=== PATIENT | female | born 1985 | race African-American/Black ===

== ENCOUNTER 2016-06-03 18:25 | Emergency (ER) | payer BC ==
[~2016-06-03] VITALS: Ht 162.6 cm; Wt 52.0 kg
[~2016-06-03 18:25] MED LIST: IBUP800T25 PO; LOPE2CAP PO; ONDA4TAB14 PO; PEN500 PO
[2016-06-03 18:31] VITALS: Ht 162.6 cm; Wt 52.0 kg
[2016-06-03] MEDS ORDERED: SOD CHLORIDE 0.9% 1,000 ML IV STA (19:20)
[2016-06-03] MEDS ORDERED: METOCLOPRAMIDE 10 MG INJ IV ONE (19:30)
[2016-06-03 19:44] LABS: ADD UMIC YES; URINE BILIRUBIN (Dip) 1+ (NEGATIVE); URINE BLOOD (Dip) NEGATIVE (NEGATIVE); URINE COLOR YELLOW (YELLOW); URINE GLUCOSE (Dip) NEGATIVE (NEGATIVE); URINE KETONES (Dip) 3+ (NEGATIVE); URINE LEUKOCYTE ESTERASE (Dip) NEGATIVE (NEGATIVE); URINE NITRITE (Dip) NEGATIVE (NEGATIVE); URINE TOTAL PROTEIN (Dip) 1+ (NEGATIVE); URINE UROBILINOGEN (Dip) 1.0 E.U./dL (0.1-1.0)
[2016-06-03 19:54] LABS: ICTOTEST NEGATIVE (NEGATIVE)
[2016-06-03 19:55] LABS: URINE RBCS NONE SEEN /HPF (0)
[2016-06-03 19:55] LABS: ADD SCAN DIFF NO
[2016-06-03 19:56] LABS: MUCUS,URINE MODERATE
[2016-06-03 19:57] LABS: BASOPHILS % 0.1 % (0.0-2.0); EOSINOPHILS % 0.1 % (0.0-7.0); HEMATOCRIT 38.1 % (37.0-47.0); HEMOGLOBIN 12.8 g/dl (12.0-16.0); MEAN CORPUSCULAR HEMOGLOBIN 24.3 pg (29.0-33.0); MEAN CORPUSCULAR HGB CONC 33.6 g/dl (32.0-37.0); MEAN CORPUSCULAR VOLUME 72.4 fl (82.0-101.0); MONOCYTE # 0.8 10^3/ul (0.3-0.9); NEUTROPHILS % 86.4 % (39.0-77.0); PLATELET COUNT 316 10^3/UL (140-415); RED BLOOD COUNT 5.26 10^6/ul (4.20-5.40); RED CELL DISTRIBUTION WIDTH 13.2 % (11.5-14.5); WHITE BLOOD COUNT 13.9 10^3/ul (4.8-10.8)
[2016-06-03 20:21] LABS: ALBUMIN/GLOBULIN RATIO 1.19; BILIRUBIN,INDIRECT 1.7 mg/dl (0-1.1); BILIRUBIN,TOTAL 1.7 mg/dl (0.2-1.3); CALCIUM 10.2 mg/dl (8.4-10.2); CREATININE 0.54 mg/dl (0.44-1.00); POTASSIUM 3.1 mmol/L (3.5-5.1); TOTAL PROTEIN 9.2 g/dl (6.1-8.1)
--- NOTE | 2016-06-03 20:33 | RADRPT ---
PROCEDURE: US Abdomen. CLINICAL INDICATION: Right upper quadrant pain. TECHNIQUE: Multiple real-time images were acquired of the patient's abdomen and retroperitoneum ut ilizing a high resolution transducer. COMPARISON: None FINDINGS: The liver is identified in the right upper quadrant measuring 13.24 cm in size. The of hepatic and portal veins are patent. The gallbladder wall measures 2.1 mm. There is no evidence of cholelithia sis. The common bile duct measures 2.1 mm. The portal vein is patent. The pancreas is partially visualized. Head and body or normal. The distal body and tail of the montiel creas are not optimally visualized due to bowel gas. The right kidney measured 9 cm in length without evidence of mass or hydronephrosis. IMPRESSION: 1. No evidence of cholelithiasis. Normal common bile duct. 2. Normal right kidney without evidence of hydronephrosis. RPTAT:AAJJ Physician Prateek Date Time Electronically viewed and signed by Physician Prateek on 06/03/2016 20:33 JOSELYN/
--- NOTE | 2016-06-03 20:47 | RADRPT ---
PROCEDURE: US OB. CLINICAL INDICATION: Pelvic pain. TECHNIQUE: Transabdominal and transvaginal views of the pelvis are available for review. COMPARISON: No prior studies are available for comparison. FINDINGS: The mean gestational sac diameter is 3 cm. [place]-rump length:1.6 cm heart rate:171 beats per minute Ultrasound estimated gestational age: 8 weeks 1 day Estimated date of delivery: 01/12/2017. A small subchorionic hemorrhage is seen measuring 1 x 1 x 0.4 cm in size. The right ovary is not vi sualized. Left ovary measures 5.6 x 4.5 x 4.4 cm in size. A left ovarian cyst is seen measuring 4 cm. The left ovary is otherwise normal and color flow. Otherwise, no ovarian or adnexal mass lesion is seen. There is no free fluid. IMPRESSION: Single live intrauterine with an estimated gestational age of 8 weeks 1 day. Small subchorionic hemorrhage. Correlation to the patient's clinical status in a short interval fol low-up is suggested. RPTAT: HPNM Physician Julissa Date Time Electronically viewed and signed by Physician Julissa on 06/03/2016 20:47 /
[2016-06-03] MEDS ORDERED: ONDANSETRON 4 MG INJ IV STA (21:08)
[2016-06-03] MEDS ORDERED: ONDA4TAB14 PO (21:48)
[2016-06-03] MEDS ORDERED: ACET325T33 PO (21:48)
--- NOTE | 2016-06-03 21:56 | ERD ---
ER Documentation Chief Complaint Date/Time DATE: 06/03/16 TIME: 21:51 Chief Complaint 8 wks , pelvic pain with vomiting x 5 days HPI 31-year-old female patient with no significant past medical history presents to the ED complaining of slight pelvic pain, a few episodes of nonbilious nonbloody vomiting. Reports that she is . States that she is a . States that her last menses was April 07, 2016. Reports that she some slight lower bilateral pelvic pain. Reports that her last bowel movement was yesterday. States that she was diagnosed with gallstones at a previous hospital 2 weeks ago. Denies any vaginal bleeding, vaginal discharge, diarrhea , chest pain, shortness of breath, fever, chills, cough. ROS All systems reviewed and are negative except as per history of present illness. Medications Home Meds Active Scripts Acetaminophen* (Tylenol*) 325 Mg Tablet, 1 TAB PO Q6 Y for PAIN AND OR ELEVATED TEMP, #20 TAB Prov:FABIOLA RANGEL PA-C 06/03/16 Ondansetron (Ondansetron Odt) 4 Mg Tab.rapdis, 4 MG PO Q6H Y for NAUSEA AND/OR VOMITING, #10 TAB Prov:FABIOLA RANGEL PA-C 06/03/16 Loperamide Hcl* (Imodium*) 2 Mg Capsule, 2 MG PO .AFTER EA LOOSE BM Y for DIARRHEA, #10 TAB Prov:CONSUELO HILL MD 11/06/15 Ondansetron (Ondansetron Odt) 4 Mg Tab.rapdis, 4 MG PO Q6H Y for NAUSEA AND/OR VOMITING, #10 TAB Prov:CONSUELO HILL MD 11/06/15 Penicillin V Potassium* (Penicillin V K*) 500 Mg Tab, 500 MG PO BID for 10 Days , TAB Prov:JOSE AGGARWAL 06/05/15 Ibuprofen* (Motrin*) 800 Mg Tab, 800 MG PO Q6H Y for PAIN AND OR ELEVATED TEMP, #30 TAB Prov:MG SIMONS NP 06/02/15 Allergies Allergies: Coded Allergies: No Known Allergy (Unverified , 11/06/15) PMhx/Soc Medical and Surgical Hx: pt denies Medical Hx History of Surgery: Yes () Anesthesia Reaction: No Hx Alcohol Use: No Hx Substance Use: No Hx Tobacco Use: No Smoking Status: Never smoker Physical Exam Vitals Vital Signs Date Time Temp Pulse Resp B/P Pulse Ox O2 Delivery O2 Flow Rate FiO2 06/03/16 22:15 98.2 79 20 110/82 99 Room Air 06/03/16 18:31 97.6 74 20 107/76 99 Physical Exam Const: Oga-hqc-qxfbsgdub, well-nourished. In no acute distress. Head: Atraumatic, normocephalic Eyes: Normal Conjunctiva without injection. No purulent discharge. ENT: Normal external ear, nose. Moist oropharynx without tonsillar exudates. Non -erythematous pharynx. Uvula midline. No drooling. No trismus. Neck: No cervical midline tenderness. Full range of motion. No meningismus. No cervical lymphadenopathy. No JVD. Resp: Clear to auscultation bilaterally. No wheezing, rhonchi, rales, or crackles. No accessory muscle use. No retractions. Cardio: Regular rate and rhythm. No murmurs, rubs or gallops. Abd: Soft, slight bilateral pelvic tenderness, non distended. Normal bowel sounds. No palpable masses. No rebound tenderness. No guarding. Negative McBurney's point. Negative psoas sign. Negative obturator sign. Skin: No petechiae or rashes Back: No midline tenderness. No CVA tenderness. Ext: No cyanosis, or edema. Neur: Awake and alert. Normal gait. Normal coordination. Psych: Normal Mood and Affect Result Diagram: 06/03/16194406/03/161944 Results 24 hrs Laboratory Tests Test 06/03/16 19:30 06/03/16 19:45 Urine Color YELLOW Urine Clarity CLEAR Urine pH 6.0 Urine Specific [place] >=1.030 Urine Ketones 3+ Urine Nitrite NEGATIVE Urine Bilirubin 1+ Urine Ictotest NEGATIVE Urine Urobilinogen 1.0 E.U./dL Urine Leukocyte Esterase NEGATIVE Urine Microscopic RBC NONE SEEN/HPF Urine Microscopic WBC 0-2/HPF Urine Mucus MODERATE Urine Hemoglobin NEGATIVE Urine Glucose NEGATIVE% Urine Total Protein 1+ White Blood Count 13.910^3/ul Red Blood Count 5.2610^6/ul Hemoglobin 12.8g/dl Hematocrit 38.1% Mean Corpuscular Volume 72.4fl Mean Corpuscular Hemoglobin 24.3pg Mean Corpuscular Hemoglobin Concent 33.6g/dl Red Cell Distribution Width 13.2% Platelet Count 38885^3/UL Mean Platelet Volume 12.0fl Neutrophils % 86.4% Lymphocytes % 7.0% Monocytes % 6.0% Eosinophils % 0.1% Basophils % 0.1% Nucleated Red Blood Cells % 0.0/100WBC Neutrophils # 12.010^3/ul Lymphocytes # 1.010^3/ul Monocytes # 0.810^3/ul Eosinophils # 0.010^3/ul Basophils # 0.010^3/ul Nucleated Red Blood Cells # 0.010^3/ul Sodium Level 136mmol/L Potassium Level 3.1mmol/L Chloride Level 100mmol/L Carbon Dioxide Level 20mmol/L Anion Gap 19 Blood Urea Nitrogen 15mg/dl Creatinine 0.54mg/dl Glucose Level 103mg/dl Calcium Level 10.2mg/dl Total Bilirubin 1.7mg/dl Direct Bilirubin 0.00mg/dl Indirect Bilirubin 1.7mg/dl Aspartate Amino Transf (AST/SGOT) 22IU/L Alanine Aminotransferase (ALT/SGPT) 20IU/L Alkaline Phosphatase 71IU/L Total Protein 9.2g/dl Albumin 5.0g/dl Globulin 4.20g/dl Albumin/Globulin Ratio 1.19 Lipase 41U/L Beta HCG, Quantitative 738520.0mIU/ml Current Medications Medications (Trade) Dose Ordered Sig/Ramona Route PRN Reason Start Time Stop Time Status Last Admin Dose Admin Sodium Chloride (NS) 1,000 ml @ 1,000 mls/hr Q1H STAT IV 06/03/16 19:20 06/03/16 20:19 DC 06/03/16 19:48 Metoclopramide HCl (Reglan) 10 mg ONCE ONCE IV 06/03/16 19:30 06/03/16 19:31 DC 06/03/16 19:48 Ondansetron HCl (Zofran Inj) 4 mg ONCE STAT IV 06/03/16 21:08 06/03/16 21:10 DC 06/03/16 21:16 Procedures/MDM This is a 31-year-old female patient with no significant past medical history is a presents to the ED complaining of slight lower pelvic pain and daily nonbilious nonbloody vomiting that has occurred ever since the start of her . Patient is afebrile and nontoxic-appearing. Patient has normal vital signs. An ultrasound, beta-hCG, CBC, type and RH, UA was ordered to evaluate patient. CBC: Leukocytosis of 13.9. No e/o of systemic infection. No e/o anemia. CMP: No e/o severe acidosis, alkalosis, renal failure, diabetic ketoacidosis, liver disease Lipase within normal limits. Urine: No leukocyte esterase, no nitrites, no hematuria. Rh: O negative. Rhogam was ordered to treat patient at this time since patient has a subchorionic hemorrhage noted on her ultrasound. However patient denied wanting RhoGam at this time and wanted to follow-up with her REFUSE LABORER for RhoGam within the next 72 hours. beta Hc PROCEDURE: US Abdomen. CLINICAL INDICATION: Right upper quadrant pain. TECHNIQUE: Multiple real-time images were acquired of the patient's abdomen and retroperitoneum utilizing a high resolution transducer. COMPARISON: None FINDINGS: The liver is identified in the right upper quadrant measuring 13.24 cm in size. The of hepatic and portal veins are patent. The gallbladder wall measures 2.1 mm. There is no evidence of cholelithiasis. The common bile duct measures 2.1 mm. The portal vein is patent. The pancreas is partially visualized. Head and body or normal. The distal body and tail of the pancreas are not optimally visualized due to bowel gas. The right kidney measured 9 cm in length without evidence of mass or hydronephrosis. IMPRESSION: 1. No evidence of cholelithiasis. Normal common bile duct. 2. Normal right kidney without evidence of hydronephrosis. PROCEDURE: US OB. CLINICAL INDICATION: Pelvic pain. TECHNIQUE: Transabdominal and transvaginal views of the pelvis are available for review. COMPARISON: No prior studies are available for comparison. FINDINGS: The mean gestational sac diameter is 3 cm. [place]-rump length: 1.6 cm heart rate: 171 beats per minute Ultrasound estimated gestational age: 8 weeks 1 day Estimated date of delivery: 01/12/2017. A small subchorionic hemorrhage is seen measuring 1 x 1 x 0.4 cm in size. The right ovary is not visualized. Left ovary measures 5.6 x 4.5 x 4.4 cm in size. A left ovarian cyst is seen measuring 4 cm. The left ovary is otherwise normal and color flow. Otherwise, no ovarian or adnexal mass lesion is seen. There is no free fluid. IMPRESSION: Single live intrauterine with an estimated gestational age of 8 weeks 1 day. Small subchorionic hemorrhage. Correlation to the patient's clinical status in a short interval follow-up is suggested. Patient likely has hyperemesis secondary to her . Potassium noted to be 3.1, Bicarb 21. Patient was hydrated with 1 L normal saline. Patient has a single IUP estimated to be 8 weeks. Low suspicion for symptomatic anemia, ectopic , sepsis, PID, appendicitis, ovarian torsion, tubo-ovarian abscess, surgical abdomen, or other emergent conditions. This case was discussed with my supervising physician, Dr. Lozoya who agreed with the management and discharge plan. Discharge medications: Tylenol, Zofran Patient to follow up with REFUSE LABORER in 2 days for further evaluation and treatment. Patient is to return sooner to the ED for any worsening symptoms. Patient's questions were answered. Patient understood and agreed with discharge plan. Departure Diagnosis: Primary Impression: Hyperemesis arising during Condition: Stable Patient Instructions: Hyperemesis Gravidarum (Severe Morning Sickness), , Established, Normal Symptoms Referrals: [facility] YOU HAVE RECEIVED A MEDICAL SCREENING EXAM AND THE RESULTS INDICATE THAT YOU DO NOT HAVE A CONDITION THAT REQUIRES URGENT TREATMENT IN THE EMERGENCY DEPARTMENT. FURTHER EVALUATION AND TREATMENT OF YOUR CONDITION CAN WAIT UNTIL YOU ARE SEEN IN YOUR DOCTORS OFFICE WITHIN THE NEXT 1-2 DAYS. IT IS YOUR RESPONSIBILITY TO MAKE AN APPOINTMENT FOR FOLOW-UP CARE. IF YOU HAVE A PRIMARY DOCTOR --you should call your primary doctor and schedule an appointment IF YOU DO NOT HAVE A PRIMARY DOCTOR YOU CAN CALL OUR PHYSICIAN REFERRAL HOTLINE AT IF YOU CAN NOT AFFORD TO SEE A PHYSICIAN YOU CAN CHOSE FROM THE FOLLOWING [facility] [address] [place] [facility] [address] [facility]. [facility] [address] [facility] [address] [facility] [address] [facility]. [facility] [address] [facility]. [facility] YOU HAVE RECEIVED A MEDICAL SCREENING EXAM AND THE RESULTS INDICATE THAT YOU DO NOT HAVE A CONDITION THAT REQUIRES URGENT TREATMENT IN THE EMERGENCY DEPARTMENT. FURTHER EVALUATION AND TREATMENT OF YOUR CONDITION CAN WAIT UNTIL YOU ARE SEEN IN YOUR DOCTORS OFFICE WITHIN THE NEXT 1-2 DAYS. IT IS YOUR RESPONSIBILITY TO MAKE AN APPOINTMENT FOR FOLOW-UP CARE. IF YOU HAVE A PRIMARY DOCTOR --you should call your primary doctor and schedule and appointment IF YOU DO NOT HAVE A PRIMARY DOCTOR YOU CAN CALL OUR PHYSICIAN REFERRAL HOTLINE AT . IF YOU CAN NOT AFFORD TO SEE A PHYSICIAN YOU CAN CHOSE FROM THE FOLLOWING [facility] INSTITUTIONS: [facility] [address] [place] [address] [facility] [address] [place], [place] [id number] [place] [address] [address] [place] [address] [facility] URGENT CARE/SPECIALTIES Additional Instructions: FOLLOW UP WITH YOUR REFUSE LABORER in 2 days. Return to this facility if you are not improving as expected. FABIOLA RANGEL PA-C Jun 03, 2016 21:56
[2016-06-03 22:15] VITALS: BP 110/82; PULSE 79; RESP 20; TEMP 98.2
== END 2016-06-03 22:20 | disposition home or self-care (01) ==
LOC: FTE 18:25
DX: O21.0 Mild hyperemesis gravidarum (principal); R10.2 Pelvic and perineal pain; Z3A.08 8 weeks gestation of pregnancy
CPT/HCPCS: 76705; 76801; 80053; 81001; 83690; 84702; 85025; 86900; 86901; J2405; J2765; J7030; 36415; 81003; 96374; 96375

== ENCOUNTER 2016-07-31 09:38 | Emergency (ER) | payer BC ==
[~2016-07-31] VITALS: Ht 152.4 cm; Wt 57.5 kg
[~2016-07-31 09:38] MED LIST changes: +ACET325T33 PO
[2016-07-31 09:42] VITALS: Ht 152.4 cm; Wt 57.5 kg
[2016-07-31] MEDS ORDERED: SOD CHLORIDE 0.9% 1,000 ML IV STA (10:10)
[2016-07-31] MEDS ORDERED: ONDANSETRON 4 MG INJ IV STA (10:10)
[2016-07-31] MEDS ORDERED: ACETAMINOPHEN 325 MG TAB PO STA (10:10)
[2016-07-31 10:43] LABS: ADD SCAN DIFF NO
[2016-07-31 10:49] LABS: BASOPHILS % 0.2 % (0.0-2.0); EOSINOPHILS # 0.1 10^3/ul (0.0-0.5); EOSINOPHILS % 0.8 % (0.0-7.0); HEMATOCRIT 31.1 % (37.0-47.0); HEMOGLOBIN 10.4 g/dl (12.0-16.0); LYMPHOCYTES # 1.1 10^3/ul (0.8-2.9); LYMPHOCYTES % 11.5 % (15.0-51.0); MEAN CORPUSCULAR HEMOGLOBIN 25.1 pg (29.0-33.0); MEAN CORPUSCULAR HGB CONC 33.4 g/dl (32.0-37.0); MEAN CORPUSCULAR VOLUME 75.1 fl (82.0-101.0); MEAN PLATELET VOLUME 12.5 fl (7.4-10.4); MONOCYTE # 0.6 10^3/ul (0.3-0.9); MONOCYTES % 6.3 % (0.0-11.0); NEUTROPHIL # 7.9 10^3/ul (1.6-7.5); NEUTROPHILS % 80.7 % (39.0-77.0); RED BLOOD COUNT 4.14 10^6/ul (4.20-5.40); RED CELL DISTRIBUTION WIDTH 13.9 % (11.5-14.5); WHITE BLOOD COUNT 9.8 10^3/ul (4.8-10.8)
[2016-07-31 10:51] LABS: ADD UMIC YES; UR ASCORBIC ACID NEGATIVE (NEGATIVE); UR BILIRUBIN (Dip) NEGATIVE (NEGATIVE); UR BLOOD (Dip) NEGATIVE (NEGATIVE); UR CLARITY SLIGHTLY CLOUDY (CLEAR); UR COLOR YELLOW (YELLOW); UR GLUCOSE (Dip) NEGATIVE (NEGATIVE); UR KETONES (Dip) NEGATIVE (NEGATIVE); UR LEUKOCYTE ESTERASE (Dip) 1+ Leu/ul (NEGATIVE); UR MUCUS FEW /HPF (NONE SEEN); UR NITRITE (Dip) NEGATIVE (NEGATIVE); UR RBC 1 /HPF (0-5); UR SPECIFIC GRAVITY (Dip) 1.014 (1.003-1.030); UR SQUAMOUS EPITHELIAL CELL FEW /HPF (FEW); UR TOTAL PROTEIN (Dip) NEGATIVE (NEGATIVE); UR UROBILINOGEN (Dip) NEGATIVE (NEGATIVE)
--- NOTE | 2016-07-31 10:51 | ERD ---
ER Documentation Chief Complaint Date/Time DATE: 07/31/16 TIME: 10:50 Chief Complaint Complains of vomiting on and off x 3 days HPI This is a 31-year-old female presents to the ER with multiple complaints. Patient is currently about 17 weeks and states that over the last 3 days she has had headache, weakness, vomiting, dizziness. Vomiting is nonbilious nonbloody. She denies any diarrhea. Headache is located in the front of her head throbbing in quality and nonradiating. Dizziness is described as a spinning sensation. She denies any loss of consciousness or head trauma. Patient denies any vaginal bleeding or pelvic pain. A1. ROS 12 point review of systems was done, all negative except per HPI. Medications Home Meds Active Scripts Acetaminophen* (Tylenol*) 500 Mg Tab, 500 MG PO Q4H Y for MILD PAIN LEVEL 1-3 for 3 Days, TAB Prov:JOSE AGGARWAL 07/31/16 Ondansetron Hcl* (Zofran*) 4 Mg Tab, 4 MG PO Q4H Y for NAUSEA AND OR VOMITING for 3 Days, TAB Prov:JOSE AGGARWAL 07/31/16 Cephalexin* (Keflex*) 500 Mg Capsule, 500 MG PO BID for 7 Days, CAP Prov:JOSE AGGARWAL 07/31/16 Acetaminophen* (Tylenol*) 325 Mg Tablet, 1 TAB PO Q6 Y for PAIN AND OR ELEVATED TEMP, #20 TAB Prov:FABIOLA RANGEL PA-C 06/03/16 Ondansetron (Ondansetron Odt) 4 Mg Tab.rapdis, 4 MG PO Q6H Y for NAUSEA AND/OR VOMITING, #10 TAB Prov:FABIOLA RANGEL PA-C 06/03/16 Loperamide Hcl* (Imodium*) 2 Mg Capsule, 2 MG PO .AFTER EA LOOSE BM Y for DIARRHEA, #10 TAB Prov:CONSUELO HILL MD 11/06/15 Ondansetron (Ondansetron Odt) 4 Mg Tab.rapdis, 4 MG PO Q6H Y for NAUSEA AND/OR VOMITING, #10 TAB Prov:CONSEULO HILL MD 11/06/15 Penicillin V Potassium* (Penicillin V K*) 500 Mg Tab, 500 MG PO BID for 10 Days , TAB Prov:JOSE AGGARWAL 06/05/15 Ibuprofen* (Motrin*) 800 Mg Tab, 800 MG PO Q6H Y for PAIN AND OR ELEVATED TEMP, #30 TAB Prov:MG SIMONS. VAMP CREASER 06/02/15 Allergies Allergies: Coded Allergies: No Known Allergy (Unverified , 07/31/16) PMhx/Soc History of Surgery: Yes () Anesthesia Reaction: No Hx Alcohol Use: No Hx Substance Use: No Hx Tobacco Use: No Smoking Status: Never smoker Physical Exam Vitals Vital Signs Date Time Temp Pulse Resp B/P Pulse Ox O2 Delivery O2 Flow Rate FiO2 07/31/16 09:42 97.8 83 20 101/62 99 Physical Exam GENERAL: The patient is well developed and appropriate for usual state of health , in no apparent distress. HEENT: Atraumatic. Conjunctivae are pink. Pupils equal, round, and reactive to light. Extraocular muscles are grossly intact. Bilateral tympanic membranes are clear with no evidence of erythema, bulging or perforation. No sinus tenderness. NECK: C-spine is soft and supple. There is no cervical lymphadenopathy. CHEST: Clear to auscultation bilaterally. There are no rales, wheezes or rhonchi. HEART: Regular rate and rhythm. No murmurs, clicks, rubs or gallops. EXTREMITIES: Equal pulses bilaterally. There is no peripheral clubbing, cyanosis or edema. No focal swelling or erythema. Full range of motion. Grossly neurovascularly intact. NEURO: Alert and oriented. Cranial nerves II through XII are intact. Motor strength in all 4 extremities with 5/5 strength. Sensation grossly intact. Normal speech and gait. Negative Rhomberg. +2 DTRs. SKIN: There is no apparent rash or petechia. The skin is warm and dry. Result Diagram: 07/31/16 1035 07/31/16 1035 Results 24 hrs Laboratory Tests Test 07/31/16 10:24 07/31/16 10:35 Urine Color YELLOW Urine Clarity SLIGHTLY CLOUDY Urine pH 5.0 Urine Specific [place] 1.014 Urine Ketones NEGATIVEmg/dL Urine Nitrite NEGATIVEmg/dL Urine Bilirubin NEGATIVEmg/dL Urine Urobilinogen NEGATIVEmg/dL Urine Leukocyte Esterase 1+Kellen/ul Urine Microscopic RBC 1/HPF Urine Microscopic WBC 3/HPF Urine Squamous Epithelial Cells FEW/HPF Urine Mucus FEW/HPF Urine Hemoglobin NEGATIVEmg/dL Urine Glucose NEGATIVEmg/dL Urine Total Protein NEGATIVEmg/dl White Blood Count 9.810^3/ul Red Blood Count 4.1410^6/ul Hemoglobin 10.4g/dl Hematocrit 31.1% Mean Corpuscular Volume 75.1fl Mean Corpuscular Hemoglobin 25.1pg Mean Corpuscular Hemoglobin Concent 33.4g/dl Red Cell Distribution Width 13.9% Platelet Count 43461^3/UL Mean Platelet Volume 12.5fl Neutrophils % 80.7% Lymphocytes % 11.5% Monocytes % 6.3% Eosinophils % 0.8% Basophils % 0.2% Nucleated Red Blood Cells % 0.0/100WBC Neutrophils # 7.910^3/ul Lymphocytes # 1.110^3/ul Monocytes # 0.610^3/ul Eosinophils # 0.110^3/ul Basophils # 0.010^3/ul Nucleated Red Blood Cells # 0.010^3/ul Sodium Level 134mmol/L Potassium Level 4.1mmol/L Chloride Level 103mmol/L Carbon Dioxide Level 22mmol/L Anion Gap 13 Blood Urea Nitrogen 6mg/dl Creatinine 0.52mg/dl Glucose Level 74mg/dl Calcium Level 9.2mg/dl Total Bilirubin 0.6mg/dl Direct Bilirubin 0.00mg/dl Indirect Bilirubin 0.6mg/dl Aspartate Amino Transf (AST/SGOT) 18IU/L Alanine Aminotransferase (ALT/SGPT) 22IU/L Alkaline Phosphatase 41IU/L Total Protein 7.1g/dl Albumin 4.4g/dl Globulin 2.70g/dl Albumin/Globulin Ratio 1.62 Beta HCG, Quantitative 02731.0mIU/ml Current Medications Medications (Trade) Dose Ordered Sig/Ramona Route PRN Reason Start Time Stop Time Status Last Admin Dose Admin Sodium Chloride (NS) 1,000 ml @ 1,000 mls/hr Q1H STAT IV 07/31/16 10:10 07/31/16 11:09 DC 07/31/16 10:30 Acetaminophen (Tylenol Tab) 650 mg ONCE STAT PO 07/31/16 10:10 07/31/16 10:14 DC 07/31/16 10:29 Ondansetron HCl (Zofran Inj) 4 mg ONCE STAT IV 07/31/16 10:10 07/31/16 10:14 DC 07/31/16 10:29 Procedures/MDM Differential Diagnosis includes but is not limited to; tension headache, migraine headache, cluster headache, sinus headache, nonspecific febrile headache, trigeminal neurologia, subdural hematoma, subarachnoid bleeding, meningitis, encephalitis, Benign positional vertigo, labyrinthitis, vertigo, MS , acoustic neuroma, arrhythmia, anemia, hypoglycemia, infection, dehydration. Patient does have multiple complaints, her symptoms may be related to urinary tract infection that she currently has. Her vomiting was controlled in the ER with Zofran and her headache was completely resolved with Tylenol. Headache may be related to continuous vomiting and mild dehydration. Patient was given fluids in the ER. There is no evidence of abnormality with her and she does not have any vaginal pain, vaginal discharge, vaginal bleeding. Suspicion for pyelonephritis is less patient does not have any CVA tenderness and she is afebrile and well-appearing. Patient will be sent home with Keflex for urinary tract infection and Zofran for her nausea. She is to follow-up with her primary care doctor within 1-2 days return to ER sooner if symptoms worsen. My medical decision making was shared with the patient she understands and agrees with plan. Departure Diagnosis: Primary Impression: UTI (urinary tract infection) Condition: Stable JOSE AGGARWAL Jul 31, 2016 10:51
[2016-07-31 10:55] LABS: PLATELET COUNT 195 10^3/UL (140-415)
--- NOTE | 2016-07-31 11:06 | RADRPT ---
PROCEDURE: Obstetrical ultrasound CLINICAL INDICATION: Abdominal pain TECHNIQUE: Multiple sonographic images of the pelvis were obtained. The images were reviewed on a PACS workstation. COMPARISON: Obstetrical ultrasound from 06/03/2016 FINDINGS: The cervix is well visualized. There is a single viable intrauterine gestation. Cardiac activity is present with 137 beats per minute. There is a transverse presentation to maternal right. The placenta is posterior. There is no evidence for an abruption or placenta previa. There is a normal amount of amniotic fluid with a maximum vertical pocket of 4.2 cm. Measurements were made in order to determine age. The results are as follows (cm): BPD =3.29 HC =11.71 AC =9.78 FL =1.84 Estimated gestational age by ultrasound of approximately 15 weeks, 6 days. The estimated date of delivery by ultrasound is 01/16/2017. Estimated gestational age by LMP of approximately 16 weeks, 3 days. The estimated date of delivery by LMP is 01/12/2017. EFW = 132 grams (8th percentile) Left ovary measures 3.6 x 2.1 x 2.5 cm. There is normal vascular flow in the left ovary. There is a 2.5 cm cystic lesion with low level internal echoes in the left ovary which may be a hemorrhagic/co rpus luteal cyst. The right ovary is not visualized. Bilateral adnexa are unremarkable. IMPRESSION: Single viable intrauterine gestation of approximately 15 weeks, 6 days . The estimated date of delivery is 01/16/2017 . Dating by ultrasound is within 4 days of dating by LMP. Normal amount of amniotic fluid. Estimated weight is in the 8th percentile. 2.5 cm complex cystic lesion in the left ovary may be a hemorrhagic/corpus luteal cyst. Posterior placenta without evidence of an abruption or placenta previa. RPTAT: EE Physician Meir Date Time Electronically viewed and signed by Physician Meir on 07/31/2016 11:06 /
[2016-07-31 11:16] LABS: ALBUMIN 4.4 g/dl (3.3-4.9); ALBUMIN/GLOBULIN RATIO 1.62; BILIRUBIN,INDIRECT 0.6 mg/dl (0-1.1); BILIRUBIN,TOTAL 0.6 mg/dl (0.2-1.3); CALCIUM 9.2 mg/dl (8.4-10.2); CREATININE 0.52 mg/dl (0.44-1.00); POTASSIUM 4.1 mmol/L (3.5-5.1); TOTAL PROTEIN 7.1 g/dl (6.1-8.1)
[2016-07-31] MEDS ORDERED: ONDA-43 PO (11:41)
[2016-07-31] MEDS ORDERED: CEPH-443 PO (11:41)
[2016-07-31] MEDS ORDERED: TYL500 PO (11:41)
== END 2016-07-31 11:57 | disposition home or self-care (01) ==
LOC: FTE 09:38
DX: O23.42 Unspecified infection of urinary tract in pregnancy, second trimester (principal); Z3A.15 15 weeks gestation of pregnancy
CPT/HCPCS: 76805; 80053; 81001; 84702; 85025; 86900; 86901; J2405; J7030; Z7610; 36415; 96374

== ENCOUNTER 2016-08-24 09:36 | Outpatient (CLI) | payer BC ==
[~2016-08-24] VITALS: Ht 152.4 cm; Wt 57.6 kg
[~2016-08-24 09:36] MED LIST changes: +CEPH-443 PO; +ONDA-43 PO; +TYL500 PO
[2016-08-24 09:57] VITALS: BP 91/60; PULSE 86; RESP 18; Ht 152.4 cm; Wt 57.6 kg
[2016-08-24] MEDS ORDERED: PRENAT PO (09:57)
[2016-08-24] MEDS ORDERED: NA PHOSPHATE/BIPHOS 133 ML ENEMA PR ONE (10:30)
[2016-08-24] MEDS ORDERED: LACTATED RINGER'S 1,000 ML IV ONE (11:00)
[2016-08-24 11:39] LABS: ADD SCAN DIFF NO
[2016-08-24 11:40] LABS: BASOPHILS % 0.2 % (0.0-2.0); EOSINOPHILS # 0.1 10^3/ul (0.0-0.5); EOSINOPHILS % 0.6 % (0.0-7.0); HEMOGLOBIN 9.7 g/dl (12.0-16.0); LYMPHOCYTES # 1.1 10^3/ul (0.8-2.9); LYMPHOCYTES % 12.1 % (15.0-51.0); MEAN CORPUSCULAR HEMOGLOBIN 25.1 pg (29.0-33.0); MEAN CORPUSCULAR HGB CONC 33.4 g/dl (32.0-37.0); MEAN CORPUSCULAR VOLUME 75.1 fl (82.0-101.0); MEAN PLATELET VOLUME 11.6 fl (7.4-10.4); MONOCYTE # 0.6 10^3/ul (0.3-0.9); MONOCYTES % 6.7 % (0.0-11.0); NEUTROPHIL # 7.4 10^3/ul (1.6-7.5); NEUTROPHILS % 79.6 % (39.0-77.0); PLATELET COUNT 192 10^3/UL (140-415); RED BLOOD COUNT 3.86 10^6/ul (4.20-5.40); RED CELL DISTRIBUTION WIDTH 13.2 % (11.5-14.5); WHITE BLOOD COUNT 9.3 10^3/ul (4.8-10.8)
[2016-08-24 11:48] LABS: ADD UMIC NO; UR ASCORBIC ACID NEGATIVE (NEGATIVE); UR BILIRUBIN (Dip) NEGATIVE (NEGATIVE); UR BLOOD (Dip) NEGATIVE (NEGATIVE); UR CLARITY CLEAR (CLEAR); UR COLOR YELLOW (YELLOW); UR GLUCOSE (Dip) NEGATIVE (NEGATIVE); UR KETONES (Dip) 1+ mg/dL (NEGATIVE); UR LEUKOCYTE ESTERASE (Dip) NEGATIVE Leu/ul (NEGATIVE); UR NITRITE (Dip) NEGATIVE (NEGATIVE); UR SPECIFIC GRAVITY (Dip) 1.015 (1.003-1.030); UR TOTAL PROTEIN (Dip) NEGATIVE (NEGATIVE); UR UROBILINOGEN (Dip) 1+ mg/dL (NEGATIVE)
--- NOTE | 2016-08-24 12:33 | TRIAGE ---
OB Triage Datetime Report Generated by CPN: 08/24/2016 12:33 Datetime: 08/24/2016 12:00 Stage of : OB Triage Maternal Assessment Level of Consciousness: Fully Conscious Labor Evaluation Frequency: NONE Monitor Mode: External Resting Tone [place]: Relaxed Pain Assessment Pain Scale: 4 Pain Presence: Intermittent Pain Type: Cramping Pain Location: Abdomen Pain Goal: 3 Pain Relief Measures: Comfort Measures Vaginal Exam Membrane Status: Intact Vaginal Bleeding: None Datetime: 08/24/2016 11:00 Stage of : OB Triage Maternal Assessment Level of Consciousness: Fully Conscious Labor Evaluation Frequency: NONE Monitor Mode: External Resting Tone [place]: Relaxed Heart Rate Monitor Mode: Doppler (Annotations: FHHT'S DOPPLED IN THE 140'S) Pain Assessment Pain Scale: 4 Pain Presence: Intermittent Pain Type: Cramping Pain Location: Abdomen Pain Goal: 3 Pain Relief Measures: Comfort Measures Vaginal Exam Membrane Status: Intact Vaginal Bleeding: None Datetime: 08/24/2016 09:54 Assessment Type: Triage Maternal Assessment Level of Consciousness: Fully Conscious DTR's/Clonus: DTRs 2+; No Clonus Headache: Denies Blurred Vision: No Respiratory Effort: Unlabored; Regular Rhythm; Equal Expansion Breath Sounds, Left: Clear and Equal Breath Sounds, Right: Clear and Equal Nausea/Vomiting: Denies RUQ Epigastric Pain: Denies Lower Extremities Edema: None Degree: None Upper Extremities Edema: None Degree: None Facial Edema: None Fall Risk Assessment History of Falling: (0) No Secondary Diagnosis: (0) No Ambulatory Aid: (0) Bedrest/Nurse Assist IV Therapy: (0) No Gait: (0) Normal/Bedrest/Immobile Mental Status: (0) Oriented to Own Ability Fall Score: 0 Fall Risk Score Definition: No Risk: No action required Datetime: 08/24/2016 09:51 Time of Arrival: 08/24/2016 09:34 EGA: 19.6 Arrived By: Ambulatory Arrived From: Home Chief Complaint: PT C/O ABD. PAIN AND CONSTIPATION SINCE 08/22 Movement: Present Contractions: Denies/Absent Rupture of Membranes: Denies Vaginal Discharge: Denies Recent Sexual Intercouse: Denies Abdominal Trauma: Not Applicable Patient Complaints: None Time Provider Notified: 08/24/2016 10:04 Provider Notified: SUSHILA Initial Plan: IV HYDRATION, CBC, UA Datetime: 08/24/2016 09:48 Monitor Mode: External Heart Rate Monitor Mode: Doppler Comments: FHT'S 140'S
--- NOTE | 2016-08-24 13:00 | QN ---
Documentation Comment g1 iup 19 weeks costipation vss exam wnl +fht a/p iup 19 weeks false labor constipation ANTONIO FREEMAN MD Aug 24, 2016 13:00
== END 2016-08-24 12:28 | disposition home or self-care (01) ==
LOC: OBT 09:36 → L-D 09:38 → OBT 12:28
PROVIDERS: ATTEND Obstetrics & Gynecology
DX: O26.892 Other specified pregnancy related conditions, second trimester (principal); Z3A.19 19 weeks gestation of pregnancy; K59.00 Constipation, unspecified
CPT/HCPCS: 36415; 81003; 85025; 96360; J7120; Z7500; G0463

== ENCOUNTER 2016-10-29 16:31 | Outpatient (CLI) | payer BC ==
[~2016-10-29] VITALS: Ht 152.4 cm; Wt 63.4 kg
[~2016-10-29 16:31] MED LIST changes: -ACET325T33 PO; -CEPH-443 PO; -IBUP800T25 PO; -LOPE2CAP PO; -ONDA-43 PO; -ONDA4TAB14 PO; -PEN500 PO; +PRENAT PO; -TYL500 PO
[2016-10-29 16:38] VITALS: Ht 152.4 cm; Wt 63.4 kg
[2016-10-29 16:39] VITALS: BP 107/55; PULSE 91; RESP 16
[2016-10-29 17:22] LABS: ADD UMIC NO; UR ASCORBIC ACID NEGATIVE (NEGATIVE); UR BILIRUBIN (Dip) NEGATIVE (NEGATIVE); UR BLOOD (Dip) NEGATIVE (NEGATIVE); UR CLARITY CLEAR (CLEAR); UR COLOR STRAW (YELLOW); UR GLUCOSE (Dip) NEGATIVE (NEGATIVE); UR KETONES (Dip) NEGATIVE (NEGATIVE); UR LEUKOCYTE ESTERASE (Dip) NEGATIVE Leu/ul (NEGATIVE); UR NITRITE (Dip) NEGATIVE (NEGATIVE); UR SPECIFIC GRAVITY (Dip) 1.008 (1.003-1.030); UR TOTAL PROTEIN (Dip) NEGATIVE (NEGATIVE); UR UROBILINOGEN (Dip) 2+ mg/dL (NEGATIVE)
--- NOTE | 2016-10-29 18:09 | RADRPT ---
PROCEDURE: Limited OB ultrasound CLINICAL INDICATION: labor TECHNIQUE: Limited sonographic evaluation of the gravid uterus was performed to assess the cervica l length COMPARISON: 07/31/2016. FINDINGS: Single live intrauterine with cardiac heart rate of 134 beats per minute is identifi ed. Fetus is in a cephalic presentation. Cervix measures 4.35 cm in length. IMPRESSION: Single live intrauterine with a cervical length of 4.35 cm. RPTAT: HMVK .Jairo Leone MD, Date Time Electronically viewed and signed by .Jairo Leone MD, on 10/29/2016 18:08 .K/
[2016-10-29] MEDS ORDERED: ACETAMINOPHEN 325 MG TAB PO ONE (20:00)
--- NOTE | 2016-10-29 20:10 | TRIAGE ---
OB Triage Datetime Report Generated by CPN: 10/29/2016 20:09 Datetime: 10/29/2016 19:45 Stage of : OB Triage Datetime: 10/29/2016 19:38 Labor Evaluation Monitor Mode: External Pattern: Normal: <= 5 Contractions in 10 Minutes Heart Rate FHR Baseline Rate: 145 Datetime: 10/29/2016 19:20 Stage of : OB Triage Maternal Assessment Level of Consciousness: Fully Conscious Headache: Denies Blurred Vision: No Respiratory Effort: Unlabored; Regular Rhythm; Equal Expansion Nausea/Vomiting: Denies RUQ Epigastric Pain: Denies Facial Edema: None Fall Risk Assessment History of Falling: (0) No Secondary Diagnosis: (0) No Ambulatory Aid: (0) Bedrest/Nurse Assist IV Therapy: (0) No Gait: (0) Normal/Bedrest/Immobile Mental Status: (0) Oriented to Own Ability Fall Score: 0 Fall Risk Score Definition: No Risk: No action required Datetime: 10/29/2016 19:19 Labor Evaluation Monitor Mode: Palpation Resting Tone [place]: Relaxed Datetime: 10/29/2016 18:59 Heart Rate FHR Baseline Rate: 135 Datetime: 10/29/2016 18:00 Pattern: Normal: <= 5 Contractions in 10 Minutes Resting Tone [place]: Relaxed Contraction Comments: no uc Heart Rate FHR Baseline Rate: 135 Monitor Mode: External US Variability: Moderate 6-25 bpm Accelerations: 15X15 Decelerations: None Category: Category I Datetime: 10/29/2016 17:01 Pattern: Normal: <= 5 Contractions in 10 Minutes Resting Tone [place]: Relaxed Contraction Comments: no uc Heart Rate FHR Baseline Rate: 135 Monitor Mode: External US Variability: Moderate 6-25 bpm Accelerations: 15X15 Decelerations: Variable Category: Category II Datetime: 10/29/2016 16:43 Assessment Type: Triage Maternal Assessment Level of Consciousness: Fully Conscious DTR's/Clonus: DTRs 2+; No Clonus Headache: Denies Blurred Vision: No Respiratory Effort: Unlabored; Regular Rhythm; Equal Expansion Breath Sounds, Left: Clear and Equal Breath Sounds, Right: Clear and Equal Nausea/Vomiting: Denies RUQ Epigastric Pain: Denies Lower Extremities Edema: None Degree: None Upper Extremities Edema: None Degree: None Facial Edema: None Fall Risk Assessment History of Falling: (0) No Secondary Diagnosis: (0) No Ambulatory Aid: (0) Bedrest/Nurse Assist IV Therapy: (0) No Gait: (0) Normal/Bedrest/Immobile Mental Status: (0) Oriented to Own Ability Fall Score: 0 Fall Risk Score Definition: No Risk: No action required Datetime: 10/29/2016 16:42 Time of Arrival: 10/29/2016 16:21 EGA: 29.2 Arrived By: Wheelchair Arrived From: Home Chief Complaint: pt. came to hospital c/o abdominal tightness for 1hr, vaginal pressure and tearin g Movement: Present Rupture of Membranes: Denies Vaginal Bleeding: None Vaginal Discharge: Denies Recent Sexual Intercouse: Denies Abdominal Trauma: Not Applicable Patient Complaints: Other Time Provider Notified: 10/29/2016 16:47 Provider Notified: Initial Plan: r/o ptl Datetime: 08/24/2016 09:54 Fall Score: 0 Fall Risk Score Definition: No Risk: No action required Datetime: 08/24/2016 09:51 EGA: 19.6
--- NOTE | 2016-10-29 20:29 | PN ---
Triage Information Date/Time 10/29/16 Reason for visit: Abd/pelvic pain Weeks of Gestation 29w2d /Para [id number](ia) Diabetes: none Hypertention: none Additional information youngest 1y.o plenty of house activities alleviated by resting aggrevated by rolling motions Objective Vital Signs Date Time Temp Pulse Resp B/P Pulse Ox O2 Delivery O2 Flow Rate FiO2 10/29/16 16:39 98.4 91 16 107/55 Heart Rate: 130's Contractions: None Results/Medications Results 24 hrs Laboratory Tests Test 10/29/16 16:52 Urine Color STRAW Urine Clarity CLEAR Urine pH 7.0 Urine Specific [place] 1.008 Urine Ketones NEGATIVE Urine Nitrite NEGATIVE Urine Bilirubin NEGATIVE Urine Urobilinogen 2+ H Urine Leukocyte Esterase NEGATIVE Urine Hemoglobin NEGATIVE Urine Glucose NEGATIVE Urine Total Protein NEGATIVE Medications p.o hydration Imaging Results CVL 4.35 Disposition: Discharge Assessment/Plan IUP 29w2d NIL Hx of PTB round ligament syndrome Plan discharge home with RTH if tightening stomach more than X6 in hr f/u at her OB clinic [facility] NIKA CASILLAS MD Oct 29, 2016 20:29
== END 2016-10-29 20:01 | disposition home or self-care (01) ==
LOC: OBT 16:31 → L-D 16:32 → OBT 20:01
PROVIDERS: ATTEND Obstetrics & Gynecology
DX: O26.893 Other specified pregnancy related conditions, third trimester (principal); Z3A.29 29 weeks gestation of pregnancy; R10.2 Pelvic and perineal pain
CPT/HCPCS: 76817; 81003; 87086; G0463

== ENCOUNTER 2016-12-01 10:49 | Outpatient (CLI) | payer BC ==
[~2016-12-01] VITALS: Ht 152.4 cm; Wt 65.2 kg
[2016-12-01 11:07] VITALS: Ht 152.4 cm; Wt 65.2 kg
[2016-12-01] MEDS ORDERED: PROG200C6 VAG (11:07)
[2016-12-01 11:08] VITALS: BP 99/59; PULSE 73; RESP 18
[2016-12-01] MEDS ORDERED: TERBUTALINE 1 MG/ML INJ SC ONE (12:00)
[2016-12-01] MEDS ORDERED: LACTATED RINGER'S 1,000 ML IV* SCH (12:00)
[2016-12-01 12:19] LABS: BASOPHILS % 0.2 % (0.0-2.0); EOSINOPHILS # 0.1 10^3/ul (0.0-0.5); HEMATOCRIT 29.6 % (37.0-47.0); HEMOGLOBIN 9.4 g/dl (12.0-16.0); LYMPHOCYTES # 0.8 10^3/ul (0.8-2.9); LYMPHOCYTES % 9.7 % (15.0-51.0); MEAN CORPUSCULAR HEMOGLOBIN 23.8 pg (29.0-33.0); MEAN CORPUSCULAR HGB CONC 31.8 g/dl (32.0-37.0); MEAN CORPUSCULAR VOLUME 74.9 fl (82.0-101.0); MEAN PLATELET VOLUME 12.5 fl (7.4-10.4); MONOCYTE # 0.6 10^3/ul (0.3-0.9); MONOCYTES % 6.8 % (0.0-11.0); NEUTROPHILS % 81.6 % (39.0-77.0); PLATELET COUNT 195 10^3/UL (140-415); RED BLOOD COUNT 3.95 10^6/ul (4.20-5.40); RED CELL DISTRIBUTION WIDTH 14.6 % (11.5-14.5); WHITE BLOOD COUNT 8.6 10^3/ul (4.8-10.8)
[2016-12-01 12:22] LABS: ADD UMIC NO; UR ASCORBIC ACID 40 mg/dL (NEGATIVE); UR BILIRUBIN (Dip) NEGATIVE (NEGATIVE); UR BLOOD (Dip) NEGATIVE (NEGATIVE); UR CLARITY CLEAR (CLEAR); UR COLOR YELLOW (YELLOW); UR GLUCOSE (Dip) NEGATIVE (NEGATIVE); UR KETONES (Dip) 1+ mg/dL (NEGATIVE); UR LEUKOCYTE ESTERASE (Dip) NEGATIVE Leu/ul (NEGATIVE); UR NITRITE (Dip) NEGATIVE (NEGATIVE); UR SPECIFIC GRAVITY (Dip) 1.016 (1.003-1.030); UR TOTAL PROTEIN (Dip) NEGATIVE (NEGATIVE); UR UROBILINOGEN (Dip) 1+ mg/dL (NEGATIVE)
[2016-12-01] MEDS ORDERED: BETAMET NA PHOS/AC(6 MG/ML) 5ML INJ IM ONE (12:30)
[2016-12-01] MEDS ORDERED: NIFEdipine 10 MG CAP PO ONE (12:30)
[2016-12-01 12:41] LABS: BARBITURATES Negative (NEGATIVE); BENZODIAZEPINES Negative (NEGATIVE); CANNABINOIDS Negative (NEGATIVE); COCAINE Negative (NEGATIVE); OPIATES Negative (NEGATIVE)
--- NOTE | 2016-12-01 16:04 | PN ---
Triage Information Date/Time December 01, 2016 Reason for visit: Uterine contractions Weeks of Gestation 34+ /Para 7 para 5 AB 1 Diabetes: none Hypertention: none Additional information 31-year-old female at 34 weeks with complaining of uterine pressure and history of Has history of previous 3 Objective Vital Signs Date Time Temp Pulse Resp B/P Pulse Ox O2 Delivery O2 Flow Rate FiO2 12/01/16 11:08 98.3 73 18 99/59 99 Room Air Heart Rate: 150's Heart Rate Comments Reactive Contractions: None Exam Long and closed Results/Medications Result Diagram: 12/01/16 1155 Results 24 hrs Laboratory Tests Test 12/01/16 10:50 12/01/16 11:55 Urine Color YELLOW Urine Clarity CLEAR Urine pH 5.0 Urine Specific [place] 1.016 Urine Ketones 1+ H Urine Nitrite NEGATIVE Urine Bilirubin NEGATIVE Urine Urobilinogen 1+ H Urine Leukocyte Esterase NEGATIVE Urine Hemoglobin NEGATIVE Urine Glucose NEGATIVE Urine Total Protein NEGATIVE Urine Opiates Screen Negative Urine Barbiturates Negative Urine Amphetamines Screen Negative Urine Benzodiazepines Screen Negative Urine Cocaine Screen Negative Urine Cannabinoids Negative White Blood Count 8.6 Red Blood Count 3.95 L Hemoglobin 9.4 L Hematocrit 29.6 L Mean Corpuscular Volume 74.9 L Mean Corpuscular Hemoglobin 23.8 L Mean Corpuscular Hemoglobin Concent 31.8 L Red Cell Distribution Width 14.6 H Platelet Count 195 Mean Platelet Volume 12.5 H Neutrophils % 81.6 H Lymphocytes % 9.7 L Monocytes % 6.8 Eosinophils % 1.0 Basophils % 0.2 Nucleated Red Blood Cells % 0.0 Neutrophils # 7.0 Lymphocytes # 0.8 Monocytes # 0.6 Eosinophils # 0.1 Basophils # 0.0 Nucleated Red Blood Cells # 0.0 Medications Current Medications Lactated Ringer's (Lr) 1,000 ml @ 200 mls/hr Q5H IV* Last administered on t 11:52; Admin Dose 200 MLS/HR; Start 12/01/16 at 12:00 Nifedipine (Procardia) 10 mg Q6 PO ; Start 12/01/16 at 18:00 Imaging Results 11/28" Single live intrauterine with a cervical length of 4.35 cm. Disposition: Discharge Assessment/Plan contractions subsided after administration of subcutaneous terbutaline We will place on nifedipine 10 mg p.o. every 6 Follow-up in clinic Continue 17 alpha hydroxyprogesterone injections Return to OB triage for a second dose of steroids following day ELVA DUENAS MD Dec 01, 2016 16:04
--- NOTE | 2016-12-01 16:36 | TRIAGE ---
OB Triage Datetime Report Generated by CPN: 12/01/2016 16:36 Datetime: 12/01/2016 15:30 Stage of : OB Triage Maternal Assessment Level of Consciousness: Fully Conscious Labor Evaluation Frequency: 2UC/HR Monitor Mode: External Duration (sec)2399: 80 Quality: Moderate Resting Tone [place]: Relaxed Heart Rate FHR Baseline Rate: 135 Monitor Mode: External US Variability: Moderate 6-25 bpm Accelerations: 15X15 Decelerations: None Pain Assessment Pain Scale: 6 Pain Presence: Intermittent Pain Type: Cramping Pain Location: Abdomen Pain Goal: 3 Vaginal Exam Membrane Status: Intact Vaginal Bleeding: None Datetime: 12/01/2016 14:30 Stage of : OB Triage Maternal Assessment Level of Consciousness: Fully Conscious Labor Evaluation Frequency: 6UC/HR Monitor Mode: External Duration (sec)2399: 50-70 Quality: Moderate Resting Tone [place]: Relaxed Heart Rate FHR Baseline Rate: 135 Monitor Mode: External US Variability: Moderate 6-25 bpm Accelerations: 15X15 Decelerations: None Pain Assessment Pain Scale: 6 Pain Presence: Intermittent Pain Type: Cramping Pain Location: Abdomen Pain Goal: 3 Vaginal Exam Membrane Status: Intact Vaginal Bleeding: None Datetime: 12/01/2016 13:30 Stage of : OB Triage Maternal Assessment Level of Consciousness: Fully Conscious Labor Evaluation Frequency: 2-11 Monitor Mode: External Duration (sec)2399: 50-70 Quality: Moderate Resting Tone [place]: Relaxed Heart Rate FHR Baseline Rate: 135 Monitor Mode: External US Variability: Moderate 6-25 bpm Accelerations: 15X15 Decelerations: None Pain Assessment Pain Scale: 6 Pain Presence: Intermittent Pain Type: Cramping Pain Location: Abdomen Pain Goal: 3 Vaginal Exam Membrane Status: Intact Vaginal Bleeding: None Datetime: 12/01/2016 13:00 Stage of : OB Triage Maternal Assessment Level of Consciousness: Fully Conscious Labor Evaluation Frequency: 2-5 Monitor Mode: External Duration (sec)2399: 50 Quality: Moderate Resting Tone [place]: Relaxed Heart Rate FHR Baseline Rate: 135 Monitor Mode: External US Variability: Moderate 6-25 bpm Accelerations: 15X15 Decelerations: None Pain Assessment Pain Scale: 6 Pain Presence: Intermittent Pain Type: Cramping Pain Location: Abdomen Pain Goal: 3 Vaginal Exam Membrane Status: Intact Vaginal Bleeding: None Datetime: 12/01/2016 12:30 Stage of : OB Triage Maternal Assessment Level of Consciousness: Fully Conscious Labor Evaluation Frequency: 1uc Monitor Mode: External Duration (sec)2399: 50 Quality: Moderate Resting Tone [place]: Relaxed Heart Rate FHR Baseline Rate: 135 Monitor Mode: External US Variability: Moderate 6-25 bpm Accelerations: 15X15 Decelerations: None Pain Assessment Pain Scale: 6 Pain Presence: Intermittent Pain Type: Cramping Pain Location: Abdomen Pain Goal: 3 Vaginal Exam Membrane Status: Intact Vaginal Bleeding: None Datetime: 12/01/2016 12:00 Stage of : OB Triage Maternal Assessment Level of Consciousness: Fully Conscious Labor Evaluation Frequency: 1-15 Monitor Mode: External Duration (sec)2399: 30-80 Quality: Moderate Resting Tone [place]: Relaxed Heart Rate FHR Baseline Rate: 135 Monitor Mode: External US Variability: Moderate 6-25 bpm Accelerations: 15X15 Decelerations: None Category: Category I Pain Assessment Pain Scale: 6 Pain Presence: Intermittent Pain Type: Cramping Pain Location: Abdomen Pain Goal: 3 Vaginal Exam Membrane Status: Intact Vaginal Bleeding: None Datetime: 12/01/2016 11:02 Assessment Type: Triage Maternal Assessment Level of Consciousness: Fully Conscious DTR's/Clonus: DTRs 2+; No Clonus Headache: Denies Blurred Vision: No Respiratory Effort: Unlabored; Regular Rhythm; Equal Expansion Breath Sounds, Left: Clear and Equal Breath Sounds, Right: Clear and Equal Nausea/Vomiting: Denies RUQ Epigastric Pain: Denies Lower Extremities Edema: None Degree: None Upper Extremities Edema: None Degree: None Facial Edema: None Fall Risk Assessment History of Falling: (0) No Secondary Diagnosis: (0) No Ambulatory Aid: (0) Bedrest/Nurse Assist IV Therapy: (0) No Gait: (0) Normal/Bedrest/Immobile Mental Status: (0) Oriented to Own Ability Fall Score: 0 Fall Risk Score Definition: No Risk: No action required Datetime: 12/01/2016 11:01 Time of Arrival: 12/01/2016 10:42 EGA: 34.0 Arrived By: Wheelchair Arrived From: Home Chief Complaint: PT HERE C/O VAG PRESSURE AND LOWER BACK PAIN, CRAMPS, SWELLING OF BLE Movement: Present Contractions: Irregular Rupture of Membranes: Denies Vaginal Bleeding: None Vaginal Discharge: Denies Recent Sexual Intercouse: Denies Abdominal Trauma: Not Applicable Patient Complaints: Contractions; Cramping; Back Pain Time Provider Notified: 12/01/2016 11:30 Provider Notified: GEENA Initial Plan: UA, SVE, IV HYDRATION, TERB, CBC, URINE DRUG SCREEN Datetime: 12/01/2016 10:59 Monitor Mode: External Monitor Mode: External US Datetime: 10/29/2016 19:20 Fall Score: 0 Fall Risk Score Definition: No Risk: No action required Datetime: 10/29/2016 16:43 Fall Score: 0 Fall Risk Score Definition: No Risk: No action required Datetime: 10/29/2016 16:42 EGA: 29.2 Datetime: 08/24/2016 09:54 Fall Score: 0 Fall Risk Score Definition: No Risk: No action required Datetime: 08/24/2016 09:51 EGA: 19.6
[2016-12-01] MEDS ORDERED: NIFE10CA19 PO (16:37)
[2016-12-01] MEDS ORDERED: NIFEdipine 10 MG CAP PO SCH (18:00)
== END 2016-12-01 16:30 | disposition home or self-care (01) ==
LOC: L-D 10:49 → OBT 10:49
PROVIDERS: ATTEND Obstetrics & Gynecology
DX: O62.9 Abnormality of forces of labor, unspecified (principal); O34.219 Maternal care for unspecified type scar from previous cesarean delivery; Z3A.34 34 weeks gestation of pregnancy
CPT/HCPCS: 36415; 80307; 81003; 85025; 96360; 96361; 96372; J0702; J3105; J7120; Z7500; Z7610; G0463

== ENCOUNTER 2016-12-08 10:20 | Inpatient (IN) | payer BC, OTHER ==
[~2016-12-08] VITALS: Ht 152.4 cm; Wt 66.4 kg
[~2016-12-08 10:20] MED LIST changes: +NIFE10CA19 PO; +PROG200C6 VAG
[2016-12-08 10:40] VITALS: Ht 152.4 cm; Wt 66.4 kg
[2016-12-08 10:41] VITALS: BP 96/58; PULSE 92; RESP 20
[2016-12-08] MEDS ORDERED: LACTATED RINGER'S 1,000 ML IV SCH (11:26)
[2016-12-08] MEDS ORDERED: TERBUTALINE 1 MG/ML INJ SC ONE ×2 (11:30→14:30)
--- NOTE | 2016-12-08 14:18 | HP ---
Date/Time of Note Date/Time of Note DATE: 12/08/16 TIME: 14:12 OB - History Hx of Present Free Text/Dictation 31-year-old female 7 para 5 at 35+ weeks with history of 3 previous C- sections admitted complaining of onset of vaginal spotting at 8:00 in the morning Patient has history of contractions and is on nifedipine and Prometrium vaginal tablets Denies rupture of membrane Admitted not feeling well for over 2 4 hours Last Menstrual Period: Apr 05, 2016 Estimated Due Date: Jan 12, 2017 : 7 Para: 5 Spontaneous : 0 Therapeutic : 1 Obstetrical Complications: Other (10 contractions) Medical Complications: None, Other (Previous 3) Past Family/Social History * Past Medical, Surgical, Family and Obstetric Histories reviewed from chart. Blood Type: O- Rubella: immune RPR/VDRL: Negative GBS Status: Unknown HBsAG: Negative OB Admission Exam Vital Signs Vital Signs Vital Signs Date Time Temp Pulse Resp B/P Pulse Ox O2 Delivery O2 Flow Rate FiO2 12/08/16 10:41 98.0 92 20 96/58 Room Air Physical Exam HEENT: WNL Heart: Rhythm Normal Lungs: Clear, Equal Abdomen: WNL Extremities: Normal Reflexes: Normal Cervical Dilatation: None Effacement: 50% Station: -3 Membranes: Intact Heart Rate: 140's Accelerations: Accelerations Present Decelerations: No Decelerations Varibility: Marked Contractions on Admission: 6-10 Minutes Apart Date/Time Contractions Began: 12/08/2016 0800 a.m. Frequency of Contractions: every 5-10 Duration: >30seconds Intensity: Mild Last 72 hours Lab Results CBC & BMP 12/08/16 11:40 OB Assessment/Plan Reason for admission: labor Other Assessment: 35 weeks gestation history of ?ruptured uterus Other plan: observe X 24 hours continue Nifedipine and Prometrium ELVA DUENAS MD Dec 08, 2016 14:18
[2016-12-08] MEDS ORDERED: BETAMET NA PHOS/AC(6 MG/ML) 5ML INJ IM ONE ×2 (15:00→15:30)
--- NOTE | 2016-12-08 15:13 | TRIAGE ---
OB Triage Datetime Report Generated by CPN: 12/08/2016 15:13 Datetime: 12/08/2016 14:58 Stage of : OB Triage Labor Evaluation Frequency: IRRIT Monitor Mode: External Duration (sec)2399: 5 SEC Quality: Mild Pattern: Normal: <= 5 Contractions in 10 Minutes Resting Tone [place]: Relaxed Heart Rate FHR Baseline Rate: 135 Monitor Mode: External US Variability: Moderate 6-25 bpm Accelerations: 15X15 Decelerations: None Category: Category I Pain Assessment Pain Scale: 3 Pain Presence: Intermittent Pain Type: Contraction Pain Location: Abdomen Pain Goal: 3 Membrane Status: Intact Datetime: 12/08/2016 14:26 Stage of : Antepartum Datetime: 12/08/2016 14:12 Stage of : OB Triage Datetime: 12/08/2016 14:00 Stage of : OB Triage Labor Evaluation Frequency: 2-5 Monitor Mode: External Duration (sec)2399: 40-70 Quality: Mild Pattern: Normal: <= 5 Contractions in 10 Minutes Resting Tone [place]: Relaxed Heart Rate FHR Baseline Rate: 135 Monitor Mode: External US Variability: Moderate 6-25 bpm Accelerations: 15X15 Decelerations: None Category: Category I Pain Assessment Pain Scale: 5 Pain Presence: Intermittent Pain Type: Contraction Pain Location: Abdomen Pain Goal: 3 Datetime: 12/08/2016 13:00 Labor Evaluation Frequency: x5 Monitor Mode: External Duration (sec)2399: 40-70 Quality: Mild Pattern: Normal: <= 5 Contractions in 10 Minutes Resting Tone [place]: Relaxed Heart Rate FHR Baseline Rate: 135 Monitor Mode: External US Variability: Moderate 6-25 bpm Accelerations: 15X15 Decelerations: None Category: Category I Pain Assessment Pain Scale: 5 Pain Presence: Intermittent Pain Type: Contraction Pain Location: Abdomen Pain Goal: 3 Datetime: 12/08/2016 12:39 Vaginal Exam Dilatation (cms): 0.0 Exam By: wliu Vaginal Bleeding: None Datetime: 12/08/2016 12:01 Labor Evaluation Frequency: 2-10 Monitor Mode: External Duration (sec)2399: 40-60 Quality: Mild Pattern: Normal: <= 5 Contractions in 10 Minutes Resting Tone [place]: Relaxed Heart Rate FHR Baseline Rate: 135 Monitor Mode: External US Variability: Moderate 6-25 bpm Accelerations: 15X15 Decelerations: None Category: Category I Pain Assessment Pain Scale: 5 Pain Presence: Intermittent Pain Type: Contraction Pain Location: Abdomen Pain Goal: 3 Datetime: 12/08/2016 11:01 Labor Evaluation Frequency: 1-7 Duration (sec)2399: 50-60 Heart Rate FHR Baseline Rate: 135 Monitor Mode: External US Variability: Moderate 6-25 bpm Accelerations: 15X15 Category: Category I Pain Assessment Pain Scale: 5 Pain Presence: Intermittent Pain Type: Contraction Pain Location: Abdomen Pain Goal: 3 Datetime: 12/08/2016 10:35 Assessment Type: Triage Time of Arrival: 12/08/2016 10:15 EGA: 35.0 Arrived By: Ambulatory Arrived From: Home Chief Complaint: SPOTTING TODAY AND ABDOMINAL PAIN FOR 2 DAYS Movement: Present Contractions: Irregular Rupture of Membranes: Denies Vaginal Bleeding: Small Vaginal Discharge: Present Recent Sexual Intercouse: Denies Abdominal Trauma: Not Applicable Patient Complaints: Contractions; Other Time Provider Notified: 12/08/2016 11:15 Provider Notified: Initial Plan: EFM, UA Maternal Assessment Level of Consciousness: Fully Conscious DTR's/Clonus: DTRs 2+; No Clonus Headache: Denies Blurred Vision: No Respiratory Effort: Unlabored; Regular Rhythm; Equal Expansion Breath Sounds, Left: Clear and Equal Breath Sounds, Right: Clear and Equal Nausea/Vomiting: Denies RUQ Epigastric Pain: Denies Lower Extremities Edema: None Degree: None Upper Extremities Edema: None Degree: None Facial Edema: None Fall Risk Assessment History of Falling: (0) No Secondary Diagnosis: (0) No Ambulatory Aid: (0) Bedrest/Nurse Assist IV Therapy: (0) No Gait: (0) Normal/Bedrest/Immobile Mental Status: (0) Oriented to Own Ability Fall Score: 0 Fall Risk Score Definition: No Risk: No action required Datetime: 12/02/2016 14:00 Stage of : OB Triage Maternal Assessment Level of Consciousness: Fully Conscious Labor Evaluation Frequency: NONE Monitor Mode: External Resting Tone [place]: Relaxed Heart Rate FHR Baseline Rate: 125 Monitor Mode: External US Variability: Moderate 6-25 bpm Accelerations: 15X15 Decelerations: None Category: Category I Pain Assessment Pain Scale: 0 Pain Goal: 3 Membrane Status: Intact Vaginal Bleeding: None Datetime: 12/02/2016 13:42 Fall Score: 0 Fall Risk Score Definition: No Risk: No action required Datetime: 12/02/2016 13:38 EGA: 34.1 Datetime: 12/02/2016 13:18 Monitor Mode: External Monitor Mode: External US Datetime: 12/01/2016 11:02 Fall Score: 0 Fall Risk Score Definition: No Risk: No action required Datetime: 12/01/2016 11:01 EGA: 34.0 Datetime: 10/29/2016 19:20 Fall Score: 0 Fall Risk Score Definition: No Risk: No action required Datetime: 10/29/2016 16:43 Fall Score: 0 Fall Risk Score Definition: No Risk: No action required Datetime: 10/29/2016 16:42 EGA: 29.2 Datetime: 08/24/2016 09:54 Fall Score: 0 Fall Risk Score Definition: No Risk: No action required Datetime: 08/24/2016 09:51 EGA: 19.6
[2016-12-08] MEDS ORDERED: GLUCOSE GEL 15 GRAM TUBE BUCCAL PRN (15:30)
[2016-12-08] MEDS ORDERED: GLUCOSE GEL 15 GRAM TUBE PO PRN ×2 (15:30)
[2016-12-08] MEDS ORDERED: GLUCAGON 1 MG INJ IM PRN (15:30)
[2016-12-08] MEDS ORDERED: DEXTROSE 50% 50 ML SYRINGE IV PRN ×2 (15:30)
[2016-12-08] MEDS: LACTATED RINGER'S 1,000 ML IV SCH (16:49)
[2016-12-08] MEDS: NIFEdipine 10 MG CAP PO SCH (18:09)
[2016-12-08] MEDS ORDERED: ACCU-CHEK XX SCH (19:35)
[2016-12-08] MEDS ORDERED: INSULIN ASPART [NOVOLOG] 3 ML PEN SC SCH (19:35)
[2016-12-08] MEDS ORDERED: PROGESTERONE 100 MG CAP PO SCH (21:00)
[2016-12-08] MEDS ORDERED: PROGESTERONE 100 MG CAP VAG SCH (21:45)
[2016-12-09] MEDS: LACTATED RINGER'S 1,000 ML IV SCH ×2 (00:15→07:30)
[2016-12-09] MEDS: NIFEdipine 10 MG CAP PO SCH ×3 (00:16→12:26)
--- NOTE | 2016-12-09 14:29 | DS ---
Date/Time of Note Date/Time of Note DATE: 12/09/16 TIME: 14:27 Obstetrical Discharge Record Final Diagnosis Final Diagnosis: not delivered Other Final Diagnosis labor 35 weeks resolved : patient subjectively feels better an has no pain Complications Tocolytics: Terbutaline, Other (nifedipine) Condition on Discharge Physical Assessment Voiding: Yes Bowel Movement: Yes Breast: Soft, non-tender, Filling Fundus: Other () Abdomen and Incision: gravid Episiotomy: NA Calf Tenderness: No Patient Condition: Good ELVA DUENAS MD Dec 09, 2016 14:29
--- NOTE | 2016-12-09 14:32 | PD.PPDC ---
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 SPLICER Discharge Instruction Provider Information Physician Information 31-year-old female with previous history of 3 at 35 weeks admitted for contractions After receiving 2 subcutaneous doses of terbutaline and continuation of Procardia patient a total cessation of contractions Consulted perinatologist regarding previous history of ruptured uterus which was reported by the patient: Recommendation was made to proceed with the repeating the section at 36 weeks Diagnosis Final Diagnosis: Return contractions Condition Patient Condition: Good Diet Diet: Resume Regular Diet Activity/Restrictions Activity: Bedrest May Shower Restrictions: No Exercising No Lifting Nothing in the Vagina Follow-up Follow-up with Physician: 1, Day/Days (In clinic) Return to clinic for Comment: Refer to hospital in case of recurrence of her uterine contractions ELVA DUENAS MD Dec 09, 2016 14:32
[2016-12-09] MEDS ORDERED: BETAMET NA PHOS/AC(6 MG/ML) 5ML INJ IM ONE ×2 (15:00→15:30)
== END 2016-12-09 16:06 | disposition home or self-care (01) | DRG 778 ==
LOC: OBT 10:20 → L-D 10:20 → OBT 14:28 → L-D 15:14
PROVIDERS: ADMIT Obstetrics & Gynecology; ATTEND Obstetrics & Gynecology
DX: O60.00 Preterm labor without delivery, unspecified trimester (principal); Z3A.35 35 weeks gestation of pregnancy
CPT/HCPCS: 36415; 81003; 85025; 96360; 96361; 96372; G0463; J0702; J3105; J7120

== ENCOUNTER 2016-12-16 14:48 | Inpatient (IN) | payer OTHER ==
[~2016-12-16] VITALS: Ht 152.4 cm; Wt 65.5 kg
[~2016-12-16 14:48] MED LIST changes: +EPHEDrine SULFATE 50 MG/5 ML SYG ONE
[2016-12-16 15:00] VITALS: Ht 152.4 cm; Wt 65.5 kg
[2016-12-16] MEDS ORDERED: MISOPROSTOL 200 MCG TAB PR PRN (15:30)
[2016-12-16] MEDS ORDERED: METHYLERGONOVINE 0.2 MG INJ IM PRN (15:30)
[2016-12-16] MEDS ORDERED: CARBOPROST 250 MCG INJ IM PRN (15:30)
[2016-12-16] MEDS ORDERED: OXYTOCIN 30 UNITS/LR 500 ML IV SCH (15:30)
[2016-12-16] MEDS ORDERED: CEFAZOLIN 2 GM/50 ML (PMX) 50 ML IVPB SCH (15:30)
[2016-12-16] MEDS ORDERED: OXYTOCIN 30 UNITS/LR 500 ML IV PRN (15:30)
[2016-12-16 15:48] LABS: BASOPHILS % 0.2 % (0.0-2.0); EOSINOPHILS # 0.1 10^3/ul (0.0-0.5); EOSINOPHILS % 0.5 % (0.0-7.0); HEMATOCRIT 28.9 % (37.0-47.0); HEMOGLOBIN 8.9 g/dl (12.0-16.0); LYMPHOCYTES # 1.1 10^3/ul (0.8-2.9); LYMPHOCYTES % 11.9 % (15.0-51.0); MEAN CORPUSCULAR HEMOGLOBIN 22.7 pg (29.0-33.0); MEAN CORPUSCULAR HGB CONC 30.8 g/dl (32.0-37.0); MEAN CORPUSCULAR VOLUME 73.7 fl (82.0-101.0); MEAN PLATELET VOLUME 11.8 fl (7.4-10.4); MONOCYTE # 0.8 10^3/ul (0.3-0.9); MONOCYTES % 8.4 % (0.0-11.0); NEUTROPHIL # 7.2 10^3/ul (1.6-7.5); NEUTROPHILS % 77.4 % (39.0-77.0); PLATELET COUNT 215 10^3/UL (140-415); RED BLOOD COUNT 3.92 10^6/ul (4.20-5.40); RED CELL DISTRIBUTION WIDTH 15.4 % (11.5-14.5); WHITE BLOOD COUNT 9.3 10^3/ul (4.8-10.8)
[2016-12-16 16:03] LABS: INR 0.91; PROTIME 12.2 Sec (12.2-14.2)
[2016-12-16 16:04] LABS: PARTIAL THROMBOPLASTIN TIME 23.9 Sec (25.0-35.0)
[2016-12-16] MEDS ORDERED: ONDANSETRON 4 MG INJ ONE (17:54)
[2016-12-16] MEDS ORDERED: CITRIC ACID/NA CITRATE 30 ML CUP ONE (17:56)
[2016-12-16] MEDS: LACTATED RINGER'S 1,000 ML IV SCH ×2 (17:59→18:15)
[2016-12-16] MEDS ORDERED: ONDANSETRON 4 MG INJ IV STA (18:00)
[2016-12-16] MEDS ORDERED: CITRIC ACID/SODIUM CITRATE 15 ML CUP PO ONE (18:00)
[2016-12-16 18:22] LABS: BARBITURATES Negative (NEGATIVE); BENZODIAZEPINES Negative (NEGATIVE); CANNABINOIDS Negative (NEGATIVE); COCAINE Negative (NEGATIVE); OPIATES Negative (NEGATIVE)
[2016-12-16] MEDS ORDERED: METOCLOPRAMIDE 10 MG INJ ONE (19:53)
[2016-12-16] MEDS ORDERED: OXYTOCIN 10 UNIT INJ ONE (19:53)
[2016-12-16] MEDS ORDERED: FENTAnyl 50 MCG/ML VIAL ONE (19:53)
[2016-12-16] MEDS ORDERED: PHENYLephrine (100 MCG/ML) 5ML SYG ONE (19:53)
[2016-12-16] MEDS ORDERED: morphine SULFATE/PF (10 MG/10 ML) INJ ONE (19:54)
[2016-12-16] MEDS ORDERED: HYDROmorphONE (0.2 MG/ML) 10ML SYG IV PRN ×3 (21:00)
[2016-12-16] MEDS ORDERED: TRIMETHOBENZAMIDE 100 MG/ML VIAL IM PRN ×2 (21:00)
[2016-12-16] MEDS ORDERED: LABETALOL HCL 20MG INJ IV PRN (21:00)
[2016-12-16] MEDS ORDERED: NALOXONE (0.4 MG/ML) INJ IV PRN (21:00)
[2016-12-16] MEDS ORDERED: hydrALAzine 20 MG INJ IV PRN (21:00)
[2016-12-16] MEDS ORDERED: OXYCODONE/ACETAMINOPHEN (5/325) TAB PO PRN ×2 (21:00)
[2016-12-16] MEDS ORDERED: NALBUPHINE HCL (10 MG/1 ML) INJ IV PRN (21:00)
[2016-12-16] MEDS ORDERED: morphine 4 MG/ML VIAL IV PRN (21:00)
[2016-12-16] MEDS ORDERED: morphine 2 MG INJ IV PRN (21:00)
[2016-12-16] MEDS ORDERED: DIPHENHYDRAMINE 50 MG INJ IV PRN ×2 (21:00)
[2016-12-16] MEDS ORDERED: FENTAnyl 50 MCG/ML VIAL IV PRN ×3 (21:00)
[2016-12-16] MEDS ORDERED: EPHEDrine SULFATE 50 MG/5 ML SYG IV PRN (21:00)
[2016-12-16] MEDS ORDERED: ALBUTEROL 0.083% (NEB) 2.5 MG/3 ML AMP HHN PRN (21:00)
[2016-12-16] MEDS ORDERED: MEPERIDINE 25 MG INJ IV PRN (21:00)
[2016-12-16] MEDS ORDERED: ONDANSETRON 4 MG INJ IV PRN ×2 (21:00)
[2016-12-16] MEDS ORDERED: IPRATROPIUM (NEB) 0.5 MG/2.5 ML AMP HHN PRN (21:00)
--- NOTE | 2016-12-16 21:41 | HP ---
Date/Time of Note Date/Time of Note DATE: 12/16/16 TIME: 21:32 OB - History Hx of Present Free Text/Dictation Admitted at 36 weeks per perinatologist for repeat Patient has history of uterine rupture with previous section and was told not to become after previous She has signed the sterilization paper in the clinic the actual copy was not available to this service however the picture of the sterilization paper was provided by patient's on electronic device This states his sterilization paper has been signed on December 04 which is more than 30 days before her estimation date of delivery Last Menstrual Period: Apr 07, 2016 Estimated Due Date: Jan 13, 2017 : 7 Para: 5 Spontaneous : 0 Therapeutic : 1 Care: Good Care Ultrasounds: Normal mid trimester US Obstetrical Complications: Other ( labor) Medical Complications: Other (Previous 3 with history of uterine rupture) Past Family/Social History * Past Medical, Surgical, Family and Obstetric Histories reviewed from chart. Blood Type: O- Rubella: immune RPR/VDRL: Negative GBS Status: Unknown HBsAG: Negative OB Admission Exam Physical Exam HEENT: WNL Heart: Rhythm Normal Lungs: Clear, Equal Abdomen: WNL Extremities: Normal Reflexes: Normal Cervical Dilatation: None Effacement: 0% Station: -2 Heart Rate: 140's Accelerations: Accelerations Present Decelerations: No Decelerations Varibility: Marked Contractions on Admission: 6-10 Minutes Apart Date/Time Contractions Began: December 16, 2016, a.m. of admission Frequency of Contractions: Every 5-10 minute Duration: Over 30 seconds Intensity: Moderate Last 72 hours Lab Results CBC & BMP 12/16/16 15:20 OB Assessment/Plan Reason for admission: labor Other Assessment: 36+ weeks gestation Previous 3 Patient desired sterilization and signed the sterilization consent over 30 days prior to her due date History of uterine rupture Perinatologist recommending repeat section at 36 weeks Other plan: Repeat and bilateral tubal ligation ELVA DUENAS MD Dec 16, 2016 21:41
--- NOTE | 2016-12-16 21:46 | OPR ---
Operative Report Planned Procedure Free Text/Dictation Patient's had a electronic data but the patient sterilization consent which was signed December 04 by the patient Procedure date Dec 16, 2016 Procedure(s) Repeat section and bilateral tubal ligation Performed by see signature line Assisting provider: DALILA SOTO MD Anesthesiologist: Godwin Barahona M.D. Pre-procedure diagnosis 36 weeks gestation labor Previous 3 with history of uterine rupture Desired sterilization Perinatologist recommended at 36 weeks Anesthesia Type: spinal Procedure Description Under satisfactory anaesthesia a Pfannenstiel incision was made two fingerbreadth above and parallel to the symphysis of pubis around the previous scar and previous scar was removed Incision was extended laterally to the border of the Recti muscles on either sides. Incision was carried down with sharp and blunt dissection until fascia was reached. Anterior Recti muscle fascia was incised in mid portion and incision extended laterally to the border of skin incision. Fascia was mobilized from muscle superiorly and Recti muscles were from midline using sharp and blunt dissection. Peritoneum was visualized; Avoiding bowel and bladder it was incised . Incision was extended superiorly and inferiorly. Bladder blade was placed. Posterior peritoneum covering the lower segment of the uterus and lower segment of the uterus were incised.Low transverse uterine incision was made on lower segment of the uterus. Incision extended laterally to the border of Round Lig. on either sides and baby was delivered from OT. position . Amniotic fluid appeared clear. Cord blood was obtained and cord had 3 vessels.. Cord prolapse was also seen. Placenta was delivered spontaneously and appeared intact and complete. Intrauterine cavity was rubbed with a laparotomy sponge. Uterine incision was closed in 2 layers using running stitches of No1 Monocryl. Hemostasis appeared secure. Ovaries and Fallopian tubes were within normal limits. Previous scar of a uterine rupture in the posterior wall of the uterus behind the fundus was seen. Length of the scar was about 3 cm. Scar appeared very thin Bilateral Tubal Ligation was performed by following procedure: R fallopian tube was raised in mid portion; a Chiquita clamp was placed below the fimbriae extending to proximal portion of the fallopian tube. Another clamp was placed parallel to the first and after incising the fallopian tube the stump was sutured using 0 Vicryl stitch. Hemostasis was secure . Same procedure was done on fallopian tube on the opposite side. Hemostasis appeared to be secure on ligated sites of either fallopian tubes. Announcing needle, lap sponge and instrument count to be correct abdomen was closed in layers as follows: Peritoneum and Recti muscles with running stitches of 20 Vicryl. Fascia with running stitch of No 1 PDS. Subcutaneous tissue with running stitches of 20 Chromic and skin was closed using myles. Patient tolerated the procedure well and was transferred to [facility] in good condition. Post-Procedure Post-procedure diagnosis Status post and bilateral tubal ligation Findings: Live Baby Cord prolapse Previous uterine rupture in the posterior wall Normal right and left fallopian tubes Estimated blood loss: other (500 mL) Specimen(s): yes (see below) Specimen(s) description Segments of right and left fallopian tubes Grafts/Implants: no Complication(s): no Pt Condition post procedure: stable Disposition: PACU Physician Certification I, the undersigned physician, hereby certify that I have discussed the procedure described in this consent form with this patient (or the patient's legal software support representative), including: * The risk and benefits of the procedure; * Any adverse reactions that may reasonably be expected to occur; * Any alternative efficacious methods of treatment which may be medically viable ; * The potential problems that may occur during recuperation; * Potential for blood transfusion and associated risks/benefits; and * Any research or economic interest I may have regarding this treatment. I further certify that the patient/legally responsible person was encouraged to ask question and that all questions were answered. ELVA DUENAS MD Dec 16, 2016 21:46
[2016-12-16] MEDS: KETOROLAC 30 MG INJ IV PRN (22:22)
[2016-12-17] VITALS (7 sets, daily range): BP systolic 93–118; BP diastolic 52–65; PULSE 68–91; RESP 16–20
[2016-12-17] MEDS ORDERED: METHYLERGONOVINE 0.2 MG INJ IM PRN (00:30)
[2016-12-17] MEDS ORDERED: MISOPROSTOL 200 MCG TAB PR PRN (00:30)
[2016-12-17] MEDS ORDERED: LANOLIN 7 GM TUBE TOP PRN (00:30)
[2016-12-17] MEDS ORDERED: NA PHOSPHATE/BIPHOS 133 ML ENEMA PR PRN (00:30)
[2016-12-17] MEDS ORDERED: OXYTOCIN 30 UNITS/LR 500 ML IV PRN (00:30)
[2016-12-17] MEDS ORDERED: CARBOPROST 250 MCG INJ IM PRN (00:30)
[2016-12-17] MEDS: CEFAZOLIN 2 GM/50 ML (PMX) 50 ML IV SCH ×3 (00:57→17:08)
[2016-12-17] MEDS: LACTATED RINGER'S 1,000 ML IV SCH ×3 (02:44→16:28)
[2016-12-17] MEDS: KETOROLAC 30 MG INJ IV PRN ×2 (05:09→14:30)
[2016-12-17] MEDS: SENNA/DOCUSATE NA (8.6MG/50MG) TAB PO SCH ×2 (09:30→21:06)
[2016-12-17] MEDS ORDERED: BISACODYL 10 MG SUPP PR ONE ×2 (11:00→21:00)
[2016-12-17 15:05] LABS: EOSINOPHILS % 0.4 % (0.0-7.0); HEMATOCRIT 25.4 % (37.0-47.0); HEMOGLOBIN 7.9 g/dl (12.0-16.0); LYMPHOCYTES # 0.7 10^3/ul (0.8-2.9); LYMPHOCYTES % 5.9 % (15.0-51.0); MEAN CORPUSCULAR HEMOGLOBIN 23.2 pg (29.0-33.0); MEAN CORPUSCULAR HGB CONC 31.1 g/dl (32.0-37.0); MEAN CORPUSCULAR VOLUME 74.7 fl (82.0-101.0); MEAN PLATELET VOLUME 11.6 fl (7.4-10.4); MONOCYTE # 0.7 10^3/ul (0.3-0.9); MONOCYTES % 5.8 % (0.0-11.0); NEUTROPHIL # 9.9 10^3/ul (1.6-7.5); NEUTROPHILS % 87.5 % (39.0-77.0); PLATELET COUNT 183 10^3/UL (140-415); RED CELL DISTRIBUTION WIDTH 15.3 % (11.5-14.5); WHITE BLOOD COUNT 11.3 10^3/ul (4.8-10.8)
[2016-12-17] MEDS: CLINDAMYCIN 300 MG CAP PO SCH (17:08)
--- NOTE | 2016-12-17 17:59 | PN ---
Date/Time of Note Date/Time of Note DATE: 12/17/16 TIME: 17:56 Assessment/Plan VTE Prophylaxis VTE Prophylaxis Intervention: ambulation Lines/Catheters IV Catheter Type (from Nrs): Peripheral IV Assessment/Plan Assessment/Plan Status post delivery and bilateral tubal ligation Postop day 1 Advance diet and ambulate Continue to monitor vital signs Repeat CBC next day Anemia noticed Subjective 24 Hr Interval Summary No bowel movement Passing flatus Constitutional: BM, ambulates, flatus, improved, no complaints, urine output Pain Control: well controlled Exam/Review of Systems Vital Signs Vitals Vital Signs Date Time Temp Pulse Resp B/P Pulse Ox O2 Delivery O2 Flow Rate FiO2 12/17/16 16:00 97.9 68 17 118/65 Room Air 12/17/16 04:29 98 21 Intake and Output 12/16/16 12/16/16 12/17/16 15:00 23:00 07:00 Intake Total 3900 ml 550 ml Output Total 1550 ml 873 ml Balance 2350 ml -323 ml Exam Free Text/Dictation Abdomen is soft and not distended. bowel sounds are present Incision is covered Constitutional: alert, oriented, well developed Psych: nl mood/affect, no complaints Head: atraumatic, normocephalic Eyes: EOMI, nl conjunctiva, nl lids, nl sclera ENMT: mucosa pink and moist, nl external ears & nose, nl lips & teeth, nl nasal mucosa & septum Neck: non-tender, supple Respiratory: clear to auscultation, normal air movement Cardiovascular: nl pulses, regular rate and rhythm Gastrointestinal: nl liver, spleen, non-tender, soft Musculoskeletal: nl extremities to inspection, nl gait and stance Extremities: normal pulses Neurological: GLOBAL HUMAN RESOURCES DIRECTOR II-XII intact, nl mental status, nl speech, nl strength Skin: nl turgor, rash or lesions Lymph: nl lymph nodes Results Result Diagram: 12/17/16 1421 ELVA DUENAS MD Dec 17, 2016 17:59
[2016-12-17] MEDS: IBUPROFEN 800 MG TAB PO SCH (21:27)
[2016-12-18] MEDS: LACTATED RINGER'S 1,000 ML IV SCH (00:28)
[2016-12-18] MEDS: OXYCODONE/ACETAMINOPHEN (5/325) TAB PO PRN ×2 (01:54→12:44)
[2016-12-18 04:00] VITALS: BP 93/56; PULSE 88; RESP 18
[2016-12-18] MEDS: IBUPROFEN 800 MG TAB PO SCH ×2 (05:38→17:17)
[2016-12-18] MEDS: CLINDAMYCIN 300 MG CAP PO SCH ×5 (05:38→23:37)
[2016-12-18 08:00] VITALS: BP 97/60; PULSE 76; RESP 18
[2016-12-18 08:51] LABS: BASOPHILS % 0.2 % (0.0-2.0); EOSINOPHILS # 0.1 10^3/ul (0.0-0.5); EOSINOPHILS % 0.6 % (0.0-7.0); HEMATOCRIT 24.6 % (37.0-47.0); HEMOGLOBIN 7.6 g/dl (12.0-16.0); LYMPHOCYTES # 0.9 10^3/ul (0.8-2.9); LYMPHOCYTES % 8.8 % (15.0-51.0); MEAN CORPUSCULAR HEMOGLOBIN 23.5 pg (29.0-33.0); MEAN CORPUSCULAR HGB CONC 30.9 g/dl (32.0-37.0); MEAN CORPUSCULAR VOLUME 75.9 fl (82.0-101.0); MEAN PLATELET VOLUME 12.2 fl (7.4-10.4); MONOCYTE # 0.7 10^3/ul (0.3-0.9); MONOCYTES % 6.8 % (0.0-11.0); NEUTROPHIL # 8.5 10^3/ul (1.6-7.5); PLATELET COUNT 178 10^3/UL (140-415); RED BLOOD COUNT 3.24 10^6/ul (4.20-5.40); RED CELL DISTRIBUTION WIDTH 15.5 % (11.5-14.5); WHITE BLOOD COUNT 10.3 10^3/ul (4.8-10.8)
[2016-12-18] MEDS: SENNA/DOCUSATE NA (8.6MG/50MG) TAB PO SCH ×2 (08:51→20:51)
--- NOTE | 2016-12-18 14:45 | DS ---
Date/Time of Note Date/Time of Note Home next day DATE: 12/18/16 TIME: 14:43 Obstetrical Discharge Record Final Diagnosis Final Diagnosis: delivered Other Final Diagnosis Status post on tubal ligation Vaginal Delivery Obstetrical Delivery: Bilateral Tubal Ligation Section Section: Repeat Complications Labor Condition on Discharge Physical Assessment Last Vitals: See nurse's notes Voiding: Yes Bowel Movement: Yes Breast: Soft, non-tender, Filling Fundus: Firm Abdomen and Incision: Abdomen is soft and nondistended bowel sounds present Incision is healing well without induration and or erythema Episiotomy: Not applicable Calf Tenderness: No Patient Condition: Good ELVA DUENAS MD Dec 18, 2016 14:45
--- NOTE | 2016-12-18 14:47 | DS ---
Date/Time of Note Date/Time of Note Home following day DATE: 12/18/16 TIME: 14:45 Discharge Summary Admission/Discharge Info Admit Date/Time Dec 16, 2016 at 14:48 Discharge Date/Time December 19, 2016 Discharge Diagnosis Status post repeat and tubal ligation at 36 weeks Patient Condition: Good Procedures Repeat and tubal ligation Hx of Present Illness 31-year-old female underwent repeat section and tubal ligation at 36 weeks per perinatology recommendation Noticed to have a posterior wall uterine scar which indicated previous uterine rupture Hospital Course Uncomplicated Home Meds Reported Medications Nifedipine* (Procardia*) 10 Mg Capsule, 10 MG PO Q6, CAP 12/01/16 Progesterone,Micronized* (Progesterone*) 200 Mg Capsule, 200 MG VAG HS, CAP 12/01/16 Multivit/Min/Fol Ac/Iron/Pren* ( S*) 1 Tab Tab, 1 TAB PO DAILY, TAB 08/24/16 Follow-up Plan To 3 days in clinic for staple removal Primary Care Provider Sunil Harris MD Time spent on discharge: > 30 minutes Pending Labs Laboratory Tests Test 12/18/16 08:32 White Blood Count 10.310^3/ul (4.8-10.8) Red Blood Count 3.2410^6/ul (4.20-5.40) Hemoglobin 7.6g/dl (12.0-16.0) Hematocrit 24.6% (37.0-47.0) Mean Corpuscular Volume 75.9fl (82.0-101.0) Mean Corpuscular Hemoglobin 23.5pg (29.0-33.0) Mean Corpuscular Hemoglobin Concent 30.9g/dl (32.0-37.0) Red Cell Distribution Width 15.5% (11.5-14.5) Platelet Count 75841^3/UL (140-415) Mean Platelet Volume 12.2fl (7.4-10.4) Neutrophils % 83.0% (39.0-77.0) Lymphocytes % 8.8% (15.0-51.0) Monocytes % 6.8% (0.0-11.0) Eosinophils % 0.6% (0.0-7.0) Basophils % 0.2% (0.0-2.0) Nucleated Red Blood Cells % 0.0/100WBC (0.0-0.0) Neutrophils # 8.510^3/ul (1.6-7.5) Lymphocytes # 0.910^3/ul (0.8-2.9) Monocytes # 0.710^3/ul (0.3-0.9) Eosinophils # 0.110^3/ul (0.0-0.5) Basophils # 0.010^3/ul (0.0-0.1) Nucleated Red Blood Cells # 0.010^3/ul (0.0-0.0) ELVA DUENAS MD Dec 18, 2016 14:47
--- NOTE | 2016-12-18 14:48 | PD.PPDC ---
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
[2016-12-18] MEDS ORDERED: IBUP800T25 PO (14:50)
[2016-12-18 16:00] VITALS: BP 104/73; RESP 18
[2016-12-18 20:50] VITALS: BP 107/56; PULSE 82; RESP 18
[2016-12-18] MEDS: HYDROCODONE/APAP (5/325) TAB PO PRN (20:56)
[2016-12-19] MEDS: IBUPROFEN 800 MG TAB PO SCH ×4 (00:51→21:55)
[2016-12-19 04:00] VITALS: BP 96/52; PULSE 84; RESP 18
[2016-12-19] MEDS: CLINDAMYCIN 300 MG CAP PO SCH ×4 (06:05→23:18)
[2016-12-19] MEDS: HYDROCODONE/APAP (5/325) TAB PO PRN ×3 (06:25→16:25)
[2016-12-19 08:30] VITALS: BP 88/66; PULSE 82; RESP 18
[2016-12-19] MEDS: SENNA/DOCUSATE NA (8.6MG/50MG) TAB PO SCH ×2 (09:00→21:55)
[2016-12-19] MEDS ORDERED: MEASLES,MUMPS,RUBELLA VACCINE INJ SC* ONE (09:00)
[2016-12-19] MEDS ORDERED: DIPHTH/TET/ACEL PERTUSS (ADULT) 0.5 ML VIAL IM* ONE (09:00)
--- NOTE | 2016-12-19 17:24 | PN ---
Date/Time of Note Date/Time of Note DATE: 12/19/16 TIME: 17:20 Assessment/Plan VTE Prophylaxis VTE Prophylaxis Intervention: ambulation Lines/Catheters IV Catheter Type (from Nrsg): Peripheral IV Assessment/Plan Chief Complaint/Hosp Course Uncomplicated Problems: Assessment/Plan Status post postop day 3 Patient desires to stay in a homeless for 24 more hours We will discharge home the following day Subjective 24 Hr Interval Summary Had bowel movement Constitutional: BM, ambulates, flatus, improved, no complaints, urine output Pain Control: well controlled Exam/Review of Systems Vital Signs Vitals Vital Signs Date Time Temp Pulse Resp B/P Pulse Ox O2 Delivery O2 Flow Rate FiO2 12/19/16 08:30 98.0 82 18 88/66 Room Air 12/18/16 00:44 97 21 Exam Free Text/Dictation Abdomen is soft bowel sounds present Abdomen is not distended Incision is healing well without induration and erythema Constitutional: alert, oriented, well developed Psych: nl mood/affect, no complaints Head: atraumatic, normocephalic Eyes: EOMI, nl conjunctiva, nl lids, nl sclera ENMT: mucosa pink and moist, nl external ears & nose, nl lips & teeth, nl nasal mucosa & septum Neck: non-tender, supple Respiratory: clear to auscultation, normal air movement Cardiovascular: nl pulses, regular rate and rhythm Gastrointestinal: nl liver, spleen, non-tender, soft Musculoskeletal: nl extremities to inspection, nl gait and stance Extremities: normal pulses Neurological: LOGISTICS VICE PRESIDENT II-XII intact, nl mental status, nl speech, nl strength Skin: nl turgor, rash or lesions Lymph: nl lymph nodes Results Result Diagram: 12/18/16 0832 ELVA DUENAS MD Dec 19, 2016 17:24
[2016-12-19 19:50] VITALS: BP 104/58; PULSE 75; RESP 17
[2016-12-20 04:00] VITALS: BP 100/56; PULSE 77; RESP 18
[2016-12-20] MEDS: IBUPROFEN 800 MG TAB PO SCH ×2 (05:35→13:20)
[2016-12-20] MEDS: CLINDAMYCIN 300 MG CAP PO SCH ×3 (05:36→18:48)
[2016-12-20 08:10] VITALS: BP 100/56; PULSE 83; RESP 18
[2016-12-20] MEDS: SENNA/DOCUSATE NA (8.6MG/50MG) TAB PO SCH (08:10)
[2016-12-20] MEDS: OXYCODONE/ACETAMINOPHEN (5/325) TAB PO PRN ×2 (08:10→18:48)
[2016-12-20] MEDS: HYDROCODONE/APAP (5/325) TAB PO PRN (12:13)
[2016-12-20 15:40] VITALS: BP 106/59; PULSE 88; RESP 18
[2016-12-20 20:00] VITALS: BP 105/60; PULSE 73; RESP 18
== END 2016-12-20 21:35 | disposition home or self-care (01) | DRG 765 ==
LOC: L-D 14:48 → PP1 12-17 00:10
PROVIDERS: ADMIT Obstetrics & Gynecology; ATTEND Obstetrics & Gynecology
PROC: 0UL70ZZ Occlusion of Bilateral Fallopian Tubes, Open Approach (ICD-10-PCS; 2016-12-16)
PROC: 3E033VJ Introduction of Other Hormone into Peripheral Vein, Percutaneous Approach (ICD-10-PCS; 2016-12-16)
PROC: 10D00Z1 Extraction of Products of Conception, Low, Open Approach (ICD-10-PCS; principal; 2016-12-16 17:00)
DX: O34.211 Maternal care for low transverse scar from previous cesarean delivery (principal); O60.14X0 Preterm labor third trimester with preterm delivery third trimester, not applicable or unspecified; Z30.2 Encounter for sterilization; Z37.0 Single live birth; Z3A.36 36 weeks gestation of pregnancy
CPT/HCPCS: 80307; 85025; 85610; 85730; 86592; 86850; 86870; 86885; 86900; 86901; 87340; 88302; 90715; 94760; 99464; J0690; J1170; J1885; J2270; J2274; J2370; J2405; J2590; J2765; J2790; J3010; J7120

== ENCOUNTER 2017-05-07 12:47 | Emergency (ER) | END 2017-05-07 13:51 | disposition home or self-care (01) ==